=== PATIENT | male | born 1935 | race Caucasian/White ===

== ENCOUNTER 2016-12-09 09:28 | Day surgery (SDC) | payer MEDICARE ==
[2016-12-09] MEDS ORDERED: PROPOFOL 10 MG/ML VIAL IV ONE (14:00)
[2016-12-09] MEDS ORDERED: LIDOCAINE 2% MDV (20MG/ML) 20ML VIAL IV ONE (14:00)
--- NOTE | 2016-12-11 12:00 | Operative Note ---
DATE OF SURGERY: 12/09/2016 OPERATION: ESOPHAGOGASTRODUODENOSCOPY with Savary guidewire dilatation. INDICATION: Recurring dysphagia, history of esophageal stricture, and history of esophageal spasm. The patient also has epiphrenic diverticulum. Dilatation in the past has helped significantly. ANESTHESIA: Intravenous sedation was administered by the department of anesthesiology and included Diprivan titrated to effect. PROCEDURE: Following informed consent from this alert individual, including a discussion of the risks and benefits of the procedure and an opportunity for the patient to ask questions, the patient was in the left lateral decubitus position. The Olympus [id number] video endoscope was inserted into the esophagus without resistance. The proximal esophagus had a normal appearance with normal folds and distensibility. The mid esophagus and distal esophagus had spasm noted without ulcerations or erosions seen. There was an epiphrenic diverticulum noted at the distal esophageal segment. The squamocolumnar junction was otherwise fairly well defined. The stomach was entered and found to be unremarkable except for previous pyloroplasty. The duodenum as visualized was endoscopically unremarkable. Retroflexion within the stomach failed to demonstrate any additional changes. Because of the patient's benefit with dilatation in the past, a decision was made to proceed with Savary dilatation. A guidewire was placed endoscopically into the antrum and serial dilatation then followed utilizing #16 Savary dilator corresponding to a maximum dilatation of 48 Thai. The dilator was passed with relative ease. The dilator and guidewire were then withdrawn simultaneously. The patient tolerated the procedure well and was returned to the recovery area in stable condition. IMPRESSION: 1. Epiphrenic diverticulum. 2. Esophageal spasm. 3. Previous pyloroplasty. 4. Successful dilation with a #16 Savary dilator. RECOMMENDATION: The patient will be following up with Dr. Gianni Ordoñez and call as needed. As always, thank you for allowing me to participate in the care of your patient. Camacho Turk DO CC: MARYLOU Arellano
== END 2016-12-09 11:56 | disposition home or self-care (01) ==
LOC: HOP 09:28
PROVIDERS: ATTEND Internal Medicine Gastroenterology
DX: K22.4 Dyskinesia of esophagus (principal); K22.5 Diverticulum of esophagus, acquired; K44.9 Diaphragmatic hernia without obstruction or gangrene; R13.10 Dysphagia, unspecified; E11.9 Type 2 diabetes mellitus without complications; Z79.4 Long term (current) use of insulin

== ENCOUNTER 2017-02-14 20:07 | Emergency (ER) | payer MEDICARE ==
--- NOTE | 2017-02-14 21:03 | Emergency Department Record ---
History of Present Illness - General Chief complaint: Extremity Problem Stated complaint: PAIN AND BURNING IN FINGER ON LT HAND Time Seen by Provider: 02/14/17 20:55 Source: Patient Mode of Arrival: Ambulatory Limitations: No limitations - History of Present Illness Initial comments: 81 yo male presents with a left middle finger pain, swelling, burning that started tonight. No fever. No streaking up the arm. He has full ROM. He noticed a small bump on the side and wonders if he was stung or bit. He did not see any insects or spiders. MD Complaint: Extremity pain, Joint pain -: Hour(s) Location: Left Radiation: Proximal Quality: Burning Consistency: Intermittent Improves with: Nothing Worsens with: Palpation - Related Data Home Medications Medication Instructions Recorded Confirmed Last Taken Dexlansoprazole [Dexilant] 60 mg PO BIDAC 05/21/14 02/14/17 02/14/17 Griseofulvin, Microsize 500 mg PO DAILY 05/21/14 02/14/17 02/14/17 [Griseofulvin] NPH, Human Insulin Isophane 25 units SQ QHS 05/21/14 02/14/17 02/14/17 [Humulin N] NPH, Human Insulin Isophane 35 units SQ DAILY 05/21/14 02/14/17 02/14/17 [Humulin N] Nitroglycerin [Nitrostat] 0.4 mg SL ASDIR 03/17/16 02/14/17 Unknown Allergies Allergy/AdvReac Type Severity Reaction Status Date / Time levofloxacin [From LEVAQUIN] Allergy Unknown HIVES Verified 02/14/17 20:38 LEVAQUIN Allergy Unknown HIVES Uncoded 05/21/14 18:53 Travel Screening - Travel/Exposure Within Last 30 Days Have you traveled within the last 30 days?: No Review of Systems Constitutional: Denies: Chills, Fever Eyes: Denies: Eye discharge, Eye pain ENT: Denies: Congestion, Throat pain Respiratory: Denies: Cough Cardiovascular: Denies: Chest pain, Syncope Endocrine: Denies: Fatigue Gastrointestinal: Denies: Abdominal pain Genitourinary: Denies: Dysuria, Frequency Musculoskeletal: Reports: As per HPI, Arthralgia Skin: Reports: Change in color, Rash. Denies: Bruising Neurological: Denies: Confusion, Headache Psychiatric: Denies: Anxiety Hematological/Lymphatic: Denies: Easy bleeding, Easy bruising, Swollen glands Past Medical History - SOCIAL HISTORY Smoking Status: Never smoker Alcohol Use: None Drug Use: None - RESPIRATORY Hx Respiratory Disorders: No - CARDIOVASCULAR Hx Cardio Disorders: Yes Hx Cardiac Cath: Yes (8 stents, triple bypass) Hx Heart Attack: Yes - NEURO Hx Neuro Disorders: No - GI Hx GI Disorders: Yes Hx Reflux: Yes Comment:: hx of dysphagia - Hx Genitourinary Disorders: No - ENDOCRINE Hx Endocrine Disorders: Yes - MUSCULOSKELETAL Hx Musculoskeletal Disorders: No Hx Back Injury: Yes - PSYCH Hx Psych Problems: No - HEMATOLOGY/ONCOLOGY Hx Hematology/Oncology Disorders: Yes Hx Cancer: Yes (bladder) Hx Chemotherapy: No Hx Radiation Therapy: No Family Medical History Any Significant Family History?: Yes Hx Cancer: Brother/Sister Hx Dementia: Father, Brother/Sister Hx Heart Disease: Mother, Brother/Sister Physical Exam - General General Appearance: Alert, Oriented x3, Cooperative, No acute distress - Head Head exam: Atraumatic, Normal inspection - Eye Eye exam: Normal appearance - ENT ENT exam: Normal exam Ear exam: Normal external inspection Nasal Exam: Normal inspection Mouth exam: Normal external inspection - Neck Neck exam: Normal inspection - Respiratory Respiratory exam: Normal lung sounds bilaterally - Cardiovascular Cardiovascular Exam: Regular rate, Normal rhythm, Normal heart sounds Peripheral Pulses: 2+: Radial (L) - Rectal Rectal exam: Deferred - exam: Deferred - Extremities Image of Hand: 1 - very mild erythema, full ROM, non tender, 2 - small 5mm nodular area, frim, feels bony, chronic arthritic changes - Neurological Neurological exam: Alert, Normal gait, Oriented X3, Reflexes normal - Psychiatric Psychiatric exam: Normal affect, Normal mood - Skin Skin exam: Erythema Course Vital Signs 02/14/17 20:35 Temperature 98.6 F Pulse Rate [ 87 Pulse Ox Probe] Respiratory 18 Rate Blood Pressure 158/65 [Left Arm] Pulse Ox 97 - Reevaluation(s) Reevaluation #1: The XR was reviewed Mild STS No acute bony changes He was given Keflex in the ED He will be advised to see his PCP first of the week or return if worse over the weekend 02/14/17 21:22 Disposition Disposition: Discharge Clinical Impression: Cellulitis, finger Qualifiers: Laterality: left Qualified Code(s): L03.012 - Cellulitis of left finger Disposition: Home, Self-Care Condition: (1) Good Instructions: Cellulitis (ED) Forms: Patient Portal Access Time of Disposition: 21:14 Quality - Quality Measures Quality Measures: N/A - Blood Pressure Screening Does Patient Have Any of the Following: No Blood Pressure Classification: Hypertensive Reading Systolic Measurement: 148 Diastolic Measurement: 71 Screening for High Blood Pressure: < Pre-Hypertensive BP, F/U Documented > [ G8950] Pre-Hypertensive Follow-up Interventions: Referral to alternative/primary care provider.
[2017-02-14] MEDS ORDERED: CEPHALEXIN 500 MG CAPSULE PO STA (21:12)
--- NOTE | 2017-02-17 15:12 | RADIOLOGY REPORT ---
EXAM: LEFT THIRD DIGIT HISTORY: RADIOPAQUE FOREIGN BODY. TECHNIQUE: Three views of the left third digit were performed. FINDINGS: No evidence of fracture or dislocation. There is a small 2 mm radiopaque foreign body in the ventral soft tissues. IMPRESSION: 1. NO OSSEOUS ABNORMALITY. 2. 2 MM RADIOPAQUE FOREIGN BODY IN THE VENTRAL SOFT TISSUES. JOB NUMBER: [id number] MTDD
== END 2017-02-14 22:04 | disposition home or self-care (01) ==
LOC: ER 20:07
DX: L03.012 Cellulitis of left finger (principal)
CPT/HCPCS: 73140; 99283

== ENCOUNTER 2017-06-19 12:12 | Observation (INO) | payer MEDICARE ==
--- NOTE | 2017-06-19 12:41 | Emergency Department Record ---
History of Present Illness - General Stated Complaint: DIZZY Time Seen by Provider: 06/19/17 12:36 Source: Patient Mode of Arrival: Ambulatory Limitations: No limitations - History of Present Illness Initial Comments: 81 yo male presents with recurrent episodes of dizziness and feeling like he is gong to pass out. He states these episodes have been ongoing many years but have become worse the last week. He states when he stands up he gets dizzy and the room goes black. No chest pain. He states he does not think he completely passed out. No weakness to one side or the other. No nausea, vomiting or diarrhea. His new PCP is Leigh Martinez. He was directed to come to the ED to day because of his symptoms. He was seen in the [facility] yesterday. MD Complaint: Dizziness, Lightheadedness, Near syncope -: Week(s) Timing: Sudden onset, Intermittent Description: Lightheadedness History of Same: Yes History of Trauma: Yes (mild injuries to the arms) Improves With: Rest Worsens With: Position Associated Symptoms: Denies other symptoms - Gregorio Coma Scale Eye Response: (4) Open spontaneously Motor Response: (6) Obeys commands Verbal Response: (5) Oriented [place] Total: 15 - Related Data Allergies Allergy/AdvReac Type Severity Reaction Status Date / Time levofloxacin [From LEVAQUIN] Allergy Unknown HIVES Unverified 06/18/17 12:38 LEVAQUIN Allergy Unknown HIVES Uncoded 05/21/14 18:53 Review of Systems Constitutional: Denies: Chills, Fever, Malaise, Weakness Eyes: Denies: Eye discharge ENT: Denies: Congestion, Throat pain Respiratory: Denies: Cough, Dyspnea, Hemoptysis, Wheezes Cardiovascular: Reports: Syncope. Denies: Chest pain, Palpitations Endocrine: Denies: Fatigue Gastrointestinal: Denies: Abdominal pain, Diarrhea, Nausea, Vomiting Genitourinary: Denies: Dysuria, Frequency, Hematuria, Urgency Musculoskeletal: Denies: Arthralgia, Back pain, Myalgia Skin: Denies: Bruising, Change in color, Rash Neurological: Denies: Confusion, Headache, Numbness, Tingling, Tremors, Vertigo , Weakness Psychiatric: Denies: Anxiety Hematological/Lymphatic: Denies: Blood Clots, Easy bleeding, Easy bruising, Swollen glands Past Medical History - SOCIAL HISTORY Smoking Status: Never smoker Drug Use: None - RESPIRATORY Hx Respiratory Disorders: No - CARDIOVASCULAR Hx Cardio Disorders: Yes Hx Cardiac Cath: Yes (8 stents, triple bypass) Hx Heart Attack: Yes - NEURO Hx Neuro Disorders: No - GI Hx GI Disorders: Yes Hx Reflux: Yes Comment:: hx of dysphagia - Hx Genitourinary Disorders: No - ENDOCRINE Hx Endocrine Disorders: Yes - MUSCULOSKELETAL Hx Musculoskeletal Disorders: No Hx Back Injury: Yes - PSYCH Hx Psych Problems: No - HEMATOLOGY/ONCOLOGY Hx Hematology/Oncology Disorders: Yes Hx Cancer: Yes (bladder) Hx Chemotherapy: No Hx Radiation Therapy: No Family Medical History Hx Cancer: Brother/Sister Hx Dementia: Father, Brother/Sister Hx Heart Disease: Mother, Brother/Sister Physical Exam - General General Appearance: Alert, Oriented x3, Cooperative, No acute distress Limitations: No limitations - Head Head exam: Atraumatic, Normocephalic, Normal inspection - Eye Eye exam: Normal appearance. negative: Conjunctival injection, Periorbital swelling, Scleral icterus - ENT ENT exam: Normal exam, Mucous membranes moist Ear exam: Normal external inspection Nasal Exam: Normal inspection Mouth exam: Normal external inspection Teeth exam: Normal inspection Throat exam: Normal inspection - Neck Neck exam: Normal inspection, Full ROM. negative: Tenderness - Respiratory Respiratory exam: Normal lung sounds bilaterally. negative: Respiratory distress - Cardiovascular Cardiovascular Exam: Regular rate, Normal rhythm, Normal heart sounds Peripheral Pulses: 2+: Radial (R), Radial (L) - GI/Abdominal GI/Abdominal exam: Soft. negative: Tenderness - Rectal Rectal exam: Deferred - exam: Deferred - Extremities Extremities exam: Normal inspection, Full ROM, Normal capillary refill. negative: Tenderness - Back Back exam: Reports: Normal inspection, Full ROM. Denies: Muscle spasm, Rash noted, Tenderness - Neurological Neurological exam: Alert, CN II-XII intact, Normal gait, Oriented X3. negative : Motor sensory deficit - Psychiatric Psychiatric exam: Normal affect, Normal mood - Skin Skin exam: Dry, Intact, Normal color, Warm Course - Reevaluation(s) Reevaluation #1: 06/19/17 13:59 The labs were reviewed TheHgb is 9.7 The Glucose is 248 The Troponin is normal The HCT is negative for change from yesterday. Meningioma noted 06/19/17 14:06 EKG 13:05 NSR rate 88, intervals normal, axis normal, ST no acute change I TAWNYA Newman for admission for syncope Carotids and Echo will be ordered 06/19/17 15:23 Medical Decision Making - Lab Data Result diagrams: 06/19/17 12:56 06/19/17 12:56 Disposition Disposition: Admit Clinical Impression: Near syncope, Dizziness Syncope Qualifiers: Syncope type: unspecified Qualified Code(s): R55 - Syncope and collapse Disposition: Still a Patient at [facility] Decision to Admit: Admit from ER Decision to Admit Date: 06/19/17 Decision to Admit Time: 14:08 Time Discussed w/Accepting Physician: 14:08 Condition: (2) Stable Time of Disposition: 14:08 Quality - Quality Measures Quality Measures: N/A - Blood Pressure Screening Does Patient Have Any of the Following: No Blood Pressure Classification: Hypertensive Reading Systolic Measurement: 157 Diastolic Measurement: 63 Screening for High Blood Pressure: < Pre-Hypertensive BP, F/U Documented > [ G8950] Pre-Hypertensive Follow-up Interventions: Referral to alternative/primary care provider.
[2017-06-19 13:07] LABS: HEMATOCRIT 32.7 % (42.0-52.0); HEMOGLOBIN 9.7 gm/dl (14.0-18.0); MEAN CELL VOLUME 65.3 fl (81-97); MEAN CORPUSCULAR HGB CONC 29.7 g/dl (32-36); MEAN PLATELET VOLUME 9.7 fl (7.4-10.4); PLATELET COUNT 290 K/uL (130-400); RED BLOOD COUNT 5.01 M/uL (4.40-5.70); RED CELL DISTRIBUTION WIDTH 19.6 % (11.5-14.5); WHITE BLOOD COUNT W/O DIFF 8.5 K/uL (4.2-12.2)
[2017-06-19 13:09] LABS: MEAN CORPUSCULAR HEMOGLOBIN 19.3 pg (27-33)
[2017-06-19 13:18] LABS: BILIRUBIN,TOTAL < 0.20 mg/dL (0.2-1.0); BLOOD UREA NITROGEN 19 mg/dL (8-23); CREATININE 0.9 mg/dL (0.7-1.2); EST GLOMERULAR FILTRATION RATE > 60 mL/min; TOTAL PROTEIN 7.5 g/dL (6.6-8.7)
[2017-06-19 13:19] LABS: HYPOCHROMIA 1+; PLATELET ESTIMATE NORMAL (NORMAL)
[2017-06-19 13:20] LABS: GLUCOSE,RANDOM 248 mg/dL (74-109); INR 0.93; PARTIAL THROMBOPLASTIN TIME 24.7 SECONDS (24.5-39.1)
[2017-06-19 13:23] LABS: ALB/GLOB RATIO 1.6 (1.1-1.8); ALBUMIN 4.6 g/dL (4.0-5.0); ALKALINE PHOSPHATASE 81 U/L (40-129); ALT/SGPT 19 U/L (<41); AST/SGOT 23 U/L (10.0-50.0)
[2017-06-19] MEDS: PANTOPRAZOLE SODIUM 40 MG TABLET PO SCH (18:15)
[2017-06-19] MEDS: HUMULIN N KWIKPEN 100 UNIT/ML SQ SCH (18:18)
[2017-06-20] MEDS: PANTOPRAZOLE SODIUM 40 MG TABLET PO SCH ×2 (06:26→15:48)
[2017-06-20 07:12] LABS: HEMATOCRIT 31.9 % (42.0-52.0); HEMOGLOBIN 9.2 gm/dl (14.0-18.0); MEAN CELL VOLUME 65.5 fl (81-97); MEAN CORPUSCULAR HGB CONC 28.8 g/dl (32-36); MEAN PLATELET VOLUME 10.3 fl (7.4-10.4); PLATELET COUNT 289 K/uL (130-400); RED BLOOD COUNT 4.87 M/uL (4.40-5.70); RED CELL DISTRIBUTION WIDTH 19.7 % (11.5-14.5)
--- NOTE | 2017-06-20 07:19 | CT SCAN REPORT ---
EXAM: CT OF THE BRAIN HISTORY: DIZZINESS. TECHNIQUE: CT of the brain without contrast was obtained. Comparison: Prior CT of the brain dated 06/18/17. FINDINGS: The globes are intact. The paranasal sinuses and mastoid air cells are unremarkable. No displaced or depressed skull fracture. There is no intra or extraaxial hemorrhage. Stable calcified dural based mass in the left frontal lobe consistent with meningioma. Negative for intraaxial mass or midline shift. Diffuse atrophy. Small vessel ischemic change. CT is limited for the evaluation of acute infarct. No CT evidence for large or territorial acute infarct. 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 ATROPHY. SMALL VESSEL ISCHEMIC CHANGE. [facility]BER: [id number] [facility]
[2017-06-20 07:25] LABS: ALB/GLOB RATIO 1.4 (1.1-1.8); ALKALINE PHOSPHATASE 61 U/L (40-129); ALT/SGPT 17 U/L (<41); AST/SGOT 18 U/L (10.0-50.0); BLOOD UREA NITROGEN 20 mg/dL (8-23); CREATININE 0.8 mg/dL (0.7-1.2); EST GLOMERULAR FILTRATION RATE > 60 mL/min; GLUCOSE,RANDOM 127 mg/dL (74-109); TOTAL PROTEIN 6.8 g/dL (6.6-8.7)
--- NOTE | 2017-06-20 07:26 | US CAROTID DOPPLER REPORT ---
EXAM: BILATERAL CAROTID DOPPLER ULTRASOUND HISTORY: SYNCOPE. TECHNIQUE: Real-time mari scale sonographic imaging of the neck was performed with Duplex Doppler and spectral analysis. Comparison: None. FINDINGS: Mari scale images reveal no significant plaque in the visualized carotid arteries. Spectral analysis demonstrates brisk carotid upstroke with no parvus tardus morphology. Velocities are as follows: Right CCA PSV: 79.3 cm/s Right ICA PSV: 86.0 cm/s Right ICA EDV: 23.5 cm/s Right ECA PSV: 157.2 cm/s Right ICA/CCA ratio: 1.1 Left CCA PSV: 62.9 cm/s Left ICA PSV: 108.7 cm/s Left ICA EDV: 18.8 cm/s Left ECA PSV: 127.7 cm/s Left ICA/CCA ratio: 1.7 There is antegrade flow in the vertebral arteries. IMPRESSION: UNREMARKABLE CAROTID DOPPLER ULTRASOUND WITH NO HEMODYNAMICALLY SIGNIFICANT STENOSIS IDENTIFIED. JOB NUMBER: [id number] MTDD
[2017-06-20 07:28] LABS: MEAN CORPUSCULAR HEMOGLOBIN 18.8 pg (27-33)
--- NOTE | 2017-06-20 08:01 | History & Physical ---
History of Present Illness - Date of Service Date of Service for History & Physical: 06/20/17 - History of Present Illness Admitting Diagnosis: syncope History of Present Illness: 81yo male with CC of recurrent episodes of dizziness and feeling like he is gong to pass out. He has history of diabetes and meningioma. Patient was seen in the [facility] about a week ago for these symptoms and then again on . He had an MRA scheduled as an outpatient but the dizziness got worse and so he was told to come to the ED. When he got to the ED, he reported standing up made him dizzy and the room goes black. No chest pain. He states he does not think he completely passed out. No weakness to one side or the other. No nausea, vomiting or diarrhea. While in the ED, Patient had EKG that showed NSR rate [address] changes. 1st set of CE returned wnl. CT head showed stable, calcified meningioma in the left frontal lobe. CBC showed hgb of 9.7. CMP showed slight increase in potassium at 4.6 but was otherwise unremarkable. Orthostatic vital signs did not show signs of orthostasis with position changes. Patient was admitted for presyncope. 06/20/17- Patient says he is feeling better today. He has continued to have dizziness with abrupt head movements or changes in position. He has not had any further episodes of the room going black or feeling like he is going to pass out. He worked with PT today and says that was helpful. He continues to deny any chest pain, vision change, confusion. He has a slight headache, but thinks it is because he didn't sleep well last night. He manages his diabetes with NPH insulin and refuses to let anyone adjust this medication. He admits that yesterday morning his glucose was pretty low, somewhere in the 30's but then it improved after eating. pcp: Shirley-[facility] Travel Screening - Travel/Exposure Within Last 30 Days Have you traveled within the last 30 days?: No - Travel/Exposure Within Last Year Have you traveled outside the [place] in the last year?: No - Additonal Travel Details Have you been exposed to anyone with a communicable illness?: No - Travel Symptoms Symptom Screening: None Review of Systems Constitutional: Denies: Chills, Fever, Malaise, Weakness Eyes: Denies: Eye discharge ENT: Denies: Congestion, Throat pain Respiratory: Denies: Cough, Dyspnea, Hemoptysis, Wheezes Cardiovascular: Reports: Syncope. Denies: Chest pain, Palpitations Endocrine: Denies: Fatigue Gastrointestinal: Denies: Abdominal pain, Diarrhea, Nausea, Vomiting Genitourinary: Denies: Dysuria, Frequency, Hematuria, Urgency Musculoskeletal: Denies: Arthralgia, Back pain, Myalgia Skin: Denies: Bruising, Change in color, Rash Neurological: Reports: Vertigo. Denies: Confusion, Headache, Numbness, Tingling , Tremors, Weakness Psychiatric: Denies: Anxiety Hematological/Lymphatic: Denies: Blood Clots, Easy bleeding, Easy bruising, Swollen glands Past Medical History - SOCIAL HISTORY Smoking Status: Never smoker Drug Use: None - RESPIRATORY Hx Respiratory Disorders: No - CARDIOVASCULAR Hx Cardio Disorders: Yes Hx Cardiac Cath: Yes (8 stents, triple bypass) Hx Heart Attack: Yes - NEURO Hx Neuro Disorders: No - GI Hx GI Disorders: Yes Hx Reflux: Yes Comment:: hx of dysphagia - Hx Genitourinary Disorders: No - ENDOCRINE Hx Endocrine Disorders: Yes - MUSCULOSKELETAL Hx Musculoskeletal Disorders: No Hx Back Injury: Yes - PSYCH Hx Psych Problems: No - HEMATOLOGY/ONCOLOGY Hx Hematology/Oncology Disorders: Yes Hx Cancer: Yes (bladder) Hx Chemotherapy: No Hx Radiation Therapy: No Family Medical History Hx Cancer: Brother/Sister Hx Dementia: Father, Brother/Sister Hx Heart Disease: Mother, Brother/Sister H&P Meds/Allergies - Allergies Allergies: Allergies Allergy/AdvReac Type Severity Reaction Status Date / Time levofloxacin [From LEVAQUIN] Allergy Unknown HIVES Unverified 06/18/17 12:38 LEVAQUIN Allergy Unknown HIVES Uncoded 05/21/14 18:53 - Active Medications Active Medications: Current Medications Insulin Human NPH (Humulin N Kwikpen) 18 unit SQ 1645 SANTIAGO Last Admin: 06/19/17 18:18 Dose: 18 unit Insulin Human NPH (Humulin N Kwikpen) 35 unit SQ 0745 SANTIAGO Pantoprazole Sodium (Protonix) 40 mg PO BIDAC [facility] Last Admin: 06/20/17 06:26 Dose: 40 mg Physical Exam - Vital Signs Vital Signs: Vital Signs - Last 24 Hrs Temp Pulse Pulse Resp BP BP Pulse Ox 06/19/17 20:00 98.7 F 78 18 151/68 97 12/21/17 15:22 97.9 F 89 14 157/63 98 06/19/17 15:15 98.1 F 87 18 174/67 93 L - General General Appearance: Alert, Oriented x3, Cooperative, No acute distress Limitations: No limitations - Head Head exam: Atraumatic, Normocephalic, Normal inspection - Eye Eye exam: Normal appearance. negative: Conjunctival injection, Periorbital swelling, Scleral icterus - ENT ENT exam: Normal exam, Mucous membranes moist Ear exam: Normal external inspection Nasal Exam: Normal inspection Mouth exam: Normal external inspection Teeth exam: Normal inspection Throat exam: Normal inspection - Neck Neck exam: Normal inspection, Full ROM. negative: Tenderness - Respiratory Respiratory exam: Normal lung sounds bilaterally. negative: Respiratory distress - Cardiovascular Cardiovascular Exam: Regular rate, Normal rhythm, Normal heart sounds Peripheral Pulses: 2+: Radial (R), Radial (L) - GI/Abdominal GI/Abdominal exam: Soft. negative: Tenderness - Rectal Rectal exam: Deferred - exam: Deferred - Extremities Extremities exam: Normal inspection, Full ROM, Normal capillary refill. negative: Tenderness - Back Back exam: Reports: Normal inspection, Full ROM. Denies: Muscle spasm, Rash noted, Tenderness - Neurological Neurological exam: Alert, CN II-XII intact, Normal gait, Oriented X3. negative : Motor sensory deficit - Psychiatric Psychiatric exam: Normal affect, Normal mood - Skin Skin exam: Dry, Intact, Normal color, Warm Results - Labs Result Diagrams: 06/21/17 06:05 06/21/17 06:05 Labs Last 24 Hours: Laboratory Results - last 24 hr 06/19/17 06/19/17 06/19/17 18:25 23:15 23:26 WBC RBC Hgb Hct MCV MCH MCHC RDW Plt Count MPV Gran % Lymphocytes % Monocytes % Eosinophils % Basophils % Sodium Potassium Chloride Carbon Dioxide Anion Gap BUN Creatinine Estimated GFR POC Glucose 312 H 254 H Random Glucose Calcium Total Bilirubin AST ALT Alkaline Phosphatase Troponin T < 0.010 Total Protein Albumin Globulin Albumin/Globulin Ratio 06/20/17 06/20/17 06/20/17 06:20 06:20 06:20 WBC 5.0 RBC 4.87 Hgb 9.2 L Hct 31.9 L MCV 65.5 L MCH 18.8 L MCHC 28.8 L RDW 19.7 H Plt Count 289 MPV 10.3 Gran % Lead Presser Lymphocytes % Lead Presser Monocytes % Lead Presser Eosinophils % Lead Presser Basophils % Lead Presser Sodium 146 H Potassium 4.5 Chloride 106 Carbon Dioxide 30.0 H Anion Gap 10.0 BUN 20 Creatinine 0.8 Estimated GFR > 60 POC Glucose Random Glucose 127 H Calcium 9.2 Total Bilirubin 0.20 AST 18 ALT 17 Alkaline Phosphatase 61 Troponin T < 0.010 Total Protein 6.8 Albumin 4.0 Globulin 2.8 Albumin/Globulin Ratio 1.4 06/20/17 07:31 WBC RBC Hgb Hct MCV MCH MCHC RDW Plt Count MPV Gran % Lymphocytes % Monocytes % Eosinophils % Basophils % Sodium Potassium Chloride Carbon Dioxide Anion Gap BUN Creatinine Estimated GFR POC Glucose 157 H Random Glucose Calcium Total Bilirubin AST ALT Alkaline Phosphatase Troponin T Total Protein Albumin Globulin Albumin/Globulin Ratio - Imaging and Cardiology CT scan - head Status: Report reviewed (stable, calcified meningioma left frontal region) VTE H&P Assessment - Risk for VTE Risk for VTE: Yes Risk Level: High Risk Assessment Date: 06/20/17 Risk Assessment Time: 17:00 VTE Orders Placed or Will Be Placed: Yes Plan - Detailed Diagnosis and Plan (1) Near syncope Current Visit: Yes Status: Acute Base Code: R55 - SYNCOPE AND COLLAPSE Comment: 06/20/17- CT head x2 showed no acute changes. there is a stable, calcified meningioma in the left frontal region. CE were negative x3 and EKG remains unchanged. hgb of 9.2 this morning and cmp was unremarkable. Blood pressure was 151/68 and no signs of orthostasis with position change. -carotid dopplers ordered -echo ordered -MRA of the head and neck with and without contrast ordered. earliest this can be completed is 06/21 at 10:30am. -continue vitals q8H -repeat labs qam -PT/OT consult for vestibular therapy (2) Insulin dependent diabetes mellitus Current Visit: Yes Status: Acute Base Code: E11.9 - TYPE 2 DIABETES MELLITUS WITHOUT COMPLICATIONS; Z79.4 - ALF (CURRENT) USE OF INSULIN Comment: 06/20/17- Patient reports a low in the 30's yesterday morning that did improve with food. He is very insistent that no one adjust his insulin amount or timing. Hypoglycemia will certainly contribute to his dizziness, light- headedness. -continue to monitor. (3) DVT prophylaxis Current Visit: No Status: Acute Base Code: [id number] - Priority: High Comment: 06/20/17: pt started on Lovenox 40mg SQ QD for DVT prophylaxis (4) Full code status Current Visit: No Status: Acute Base Code: Z78.9 - OTHER SPECIFIED HEALTH STATUS Comment: 06/20/17- patient will remain full code status during this hospitalization
[2017-06-20 08:22] LABS: HYPOCHROMIA 2+; MICROCYTOSIS 1+
[2017-06-20] MEDS: HUMULIN N KWIKPEN 100 UNIT/ML SQ SCH ×2 (08:50→17:45)
--- NOTE | 2017-06-20 12:40 | Rehab Evaluation ---
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 cervical neck surgery 2010 gallbladder PMH - Respiratory Hx Respiratory Disorders No PMH - Cardiovascular Hx Cardiovascular Disorders Yes Hx Cardiac Catheterization Yes: 8 stents, triple bypass Hx Heart Attack Yes PMH - Neuro Hx Neurological Disorders No Hx Dizziness Yes PMH - GI Hx Gastrointestinal Disorders Yes Hx Gastroesophageal Reflux Yes Comment: hx of dysphagia PMH - Hx Genitourinary Disorders No PMH - Endocrine Hx Endocrine Disorders Yes Hx of IDDM Yes: Humulin N 35units am, pm variable PMH - Musculoskeletal Hx Musculoskeletal Disorders No Hx Back Injury Yes PMH - Psych Hx Psychiatric Problems No PMH - Hematology/Oncology Hx Hematology/Oncology Yes Disorders Hx Cancer Yes: bladder Hx Chemotherapy No Hx Radiation Therapy No Premorbid Status: Detail (The patient was independent with all mobility.) Social History: Detail (The patient lives alone in a one story home with one step and one railing. The patient's bathroom is equipped with tub/shower combination and standard toilet and no grab bars. The patient drives and completes all his housework and cleaning.) Precautions: Fall - Time With Patient Total Time Spent With Patient (Min): 30 Treatment Procedures: Detail (Initial Evaluation.) Subjective Information - Subjective Information Per Patient (The patient complains of vertigo "room spinning " with looking down, supine to and from sit and sit to stand transfer. The patient also has complaints of lightheadness at times.) Objective Data - Mental Status Patient Orientation: Oriented x3 - Visual Perception Appears within normal limits for therapeutic activities (Visual Testing: VOR and smooth pursuit,sacadic movement were intact.) - ROM Within normal limits - Strength/Tone Within normal limits - Coordination Appears within normal limits for therapeutic activities - Bed Mobility Independent (Supine to sit was independent) - Transfers Independent - Balance Balance Sitting: Good Balance Standing: Good (Patient stands with wider base of support. Objective balance testing was not completed. The patient's balance when ambulated was decreased.), Fair (when ambulating and turning head LOB was noted.) - Gait Detail (The patient ambulated without device a distance of 70 feet x 1 independently. The patient had episode of LOB and lightheadness when turning head to the L.) - Special Tests Yes (Modified Hallpike manuever- symptoms of lightheadness was noted with right and left head rotation when returned to sitting position. No nystagmus was not noted. Positional testing: lightheadness was noted with quick vertical head movements.) Therapy Assessment - Therapy Assessment Detail (Due to positive tests of symptoms of lightheadness with quick head and positional transitional movements vestibular invovlement is probable. Recommend either Home PT or Outpatient Pt for Vestibular Rehab. Will instruct patient in Habituation exercises.) Problem List - Problem List Physical Therapy Problem List: Detail (1) Lightheadness, Vertigo with quick head movement and transitional head movements 2) Unsteadiness with gait with head movement) Goals - Goals Physical Therapy Goals: 1) Evaluate patient for balance deficits using DGI. 2) Decrease frequency and intensity of symptoms of lightheadness with transitional and quick head movements. Prognosis - Prognosis Moderate Plan - Plan Physical Therapy Plan: Patient to discharge from [facility] tomorrow. The patient was given a HEP of habituation exercises. Recommend ongoing outpatient or Home PT for vestibular rehabilitation.
[2017-06-20] MEDS ORDERED: ACETAMINOPHEN 325 MG TAB PO ONE (15:13)
[2017-06-20] MEDS ORDERED: MECLIZINE 25 MG TABLET PO PRN (16:56)
[2017-06-21 06:37] LABS: BASO % 0.4 % (0-6); EOS % 2.5 % (0-6); HEMATOCRIT 31.3 % (42.0-52.0); HEMOGLOBIN 9.1 gm/dl (14.0-18.0); LYMPH % 27.9 % (16-45); MEAN CELL VOLUME 65.1 fl (81-97); MEAN CORPUSCULAR HEMOGLOBIN 18.9 pg (27-33); MEAN CORPUSCULAR HGB CONC 29.1 g/dl (32-36); MEAN PLATELET VOLUME 10.3 fl (7.4-10.4); MONO % 9.2 % (0-9); PLATELET COUNT 272 K/uL (130-400); RED CELL DISTRIBUTION WIDTH 19.6 % (11.5-14.5); WHITE BLOOD COUNT W/O DIFF 5.1 K/uL (4.2-12.2)
[2017-06-21 06:51] LABS: RED BLOOD COUNT 4.81 M/uL (4.40-5.70)
[2017-06-21 06:53] LABS: ALB/GLOB RATIO 1.3 (1.1-1.8); ALBUMIN 3.8 g/dL (4.0-5.0); ALKALINE PHOSPHATASE 58 U/L (40-129); ALT/SGPT 16 U/L (<41); AST/SGOT 19 U/L (10.0-50.0); BILIRUBIN,TOTAL < 0.20 mg/dL (0.2-1.0); BLOOD UREA NITROGEN 32 mg/dL (8-23); CREATININE 0.8 mg/dL (0.7-1.2); EST GLOMERULAR FILTRATION RATE > 60 mL/min; GLUCOSE,RANDOM 148 mg/dL (74-109); TOTAL PROTEIN 6.7 g/dL (6.6-8.7)
[2017-06-21] MEDS: PANTOPRAZOLE SODIUM 40 MG TABLET PO SCH (07:10)
[2017-06-21] MEDS: HUMULIN N KWIKPEN 100 UNIT/ML SQ SCH (08:45)
--- NOTE | 2017-06-21 09:06 | Discharge Summary ---
Providers Discharge Summary Date: 06/21/17 Date of admission: 06/19/17 14:43 Attending physician: Dewayne Dent Primary care physician: Queenie Watson N.P. Physical Exam - Vital Signs Vital Signs: Vital Signs - Last 24 Hrs Temp Pulse Pulse Resp BP Pulse Ox 06/21/17 08:00 98.6 F 81 18 150/73 96 06/21/17 05:50 97 06/20/17 20:15 96 06/20/17 20:00 98.9 F 79 20 106/57 96 06/20/17 09:30 80 15 98 - General General Appearance: Alert, Oriented x3, Cooperative, No acute distress Limitations: No limitations - Head Head exam: Atraumatic, Normocephalic, Normal inspection - Eye Eye exam: Normal appearance. negative: Conjunctival injection, Periorbital swelling, Scleral icterus - ENT ENT exam: Normal exam, Mucous membranes moist Ear exam: Normal external inspection Nasal Exam: Normal inspection Mouth exam: Normal external inspection Teeth exam: Normal inspection Throat exam: Normal inspection - Neck Neck exam: Normal inspection, Full ROM. negative: Tenderness - Respiratory Respiratory exam: Normal lung sounds bilaterally. negative: Respiratory distress - Cardiovascular Cardiovascular Exam: Regular rate, Normal rhythm, Normal heart sounds Peripheral Pulses: 2+: Radial (R), Radial (L) - GI/Abdominal GI/Abdominal exam: Soft. negative: Tenderness - Rectal Rectal exam: Deferred - exam: Deferred - Extremities Extremities exam: Normal inspection, Full ROM, Normal capillary refill. negative: Tenderness - Back Back exam: Reports: Normal inspection, Full ROM. Denies: Muscle spasm, Rash noted, Tenderness - Neurological Neurological exam: Alert, CN II-XII intact, Normal gait, Oriented X3. negative : Motor sensory deficit - Psychiatric Psychiatric exam: Normal affect, Normal mood - Skin Skin exam: Dry, Intact, Normal color, Warm Hospitalization - Hospitalization Admission Diagnosis: syncope - Problem List/Discharge Diagnosis (1) Near syncope Current Visit: Yes Status: Acute Base Code: R55 - SYNCOPE AND COLLAPSE Comment: 06/21/17- CT head x2 showed no acute changes. there is a stable, calcified meningioma in the left frontal region. CE were negative x3 and EKG remains unchanged. -carotid dopplers showed no hemodynamically significant stenosis -echo showed mild that was not hemodynamically significant. EF was 65-70% -MRA of the head and neck with showed less than 50% luminal narrowing of the ICA with mild calcifications present. no hemodynamically significant stenosis -He will continue PT for vestibular therapy as outpatient. Order has been faxed -meclizine 25mg po up to three times daily as needed. script sent to pharmacy. 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 He says he usually eats a snickers bar and it brings his sugar right up. he does not eat after about 4:30pm until 7am the next day. -continue to monitor. -encouraged him to start having a bedtime snack with a mix of carbohydrates and protein. we talked about crackers and cheese or a single piece of bread with peanut butter -follow up with Queenie in [facility] (3) DVT prophylaxis Current Visit: No Status: Acute Base Code: [id number] - Comment: 06/21/17: pt started on Lovenox 40mg SQ QD for DVT prophylaxis (4) Full code status Current Visit: No Status: Acute Base Code: Z78.9 - OTHER SPECIFIED HEALTH STATUS Comment: 06/21/17- patient will remain full code status during this hospitalization - Hospitalization Course Disposition: Home Health Service Hospital Course: 81yo male with CC of recurrent episodes of dizziness and feeling like he is gong to pass out. He has history of diabetes and meningioma. Patient was seen in the [facility] about a week ago for these symptoms and then again on . He had an MRA scheduled as an outpatient but the dizziness got worse and so he was told to come to the ED. When he got to the ED, he reported standing up made him dizzy and the room goes black. No chest pain. He states he does not think he completely passed out. No weakness to one side or the other. No nausea, vomiting or diarrhea. While in the ED, Patient had EKG that showed NSR rate [address] changes. 1st set of CE returned wnl. CT head showed stable, calcified meningioma in the left frontal lobe. CBC showed hgb of 9.7. CMP showed slight increase in potassium at 4.6 but was otherwise unremarkable. Orthostatic vital signs did not show signs of orthostasis with position changes. Patient was admitted for presyncope. 06/20/17- Patient says he is feeling better today. He has continued to have dizziness with abrupt head movements or changes in position. He has not had any further episodes of the room going black or feeling like he is going to pass out. He worked with PT today and says that was helpful. He continues to deny any chest pain, vision change, confusion. He has a slight headache, but thinks it is because he didn't sleep well last night. He manages his diabetes with NPH insulin and refuses to let anyone adjust this medication. He admits that yesterday morning his glucose was pretty low, somewhere in the 30's but then it improved after eating. 06/21/17- Patient states he is doing well today. He says he still gets some dizziness with fast head movements or standing up quickly. He denies any further episodes of light-headedness or the room going black. He denies headache , vision change, chest pain, lower extremity swelling. [facility]: Imaging and X-Rays 06/21/17 10:30 HEAD MRA W/WO CONTRAST [MRA] Stat NECK MRA W/WO CONTRAST [MRA] Stat Abnormal Labs: Abnormal Lab Results 06/19/17 06/19/17 06/20/17 Range/Units 18:25 23:26 06:20 Hgb 9.2 L (14.0-18.0) gm/dl Hct 31.9 L (42.0-52.0) % MCV 65.5 L (81-97) fl MCH 18.8 L (27-33) pg MCHC 28.8 L (32-36) g/dl RDW 19.7 H (11.5-14.5) % Monocytes % (0-9) % Sodium (136-145) mmol/L Carbon Dioxide (22-29) mmol/L BUN (8-23) mg/dL POC Glucose 312 H 254 H (70-110) mg/dL Random Glucose (74-109) mg/dL Total Bilirubin (0.2-1.0) mg/dL Albumin (4.0-5.0) g/dL 06/20/17 06/20/17 06/20/17 Range/Units 06:20 07:31 11:45 Hgb (14.0-18.0) gm/dl Hct (42.0-52.0) % MCV (81-97) fl MCH (27-33) pg MCHC (32-36) g/dl RDW (11.5-14.5) % Monocytes % (0-9) % Sodium 146 H (136-145) mmol/L Carbon Dioxide 30.0 H (22-29) mmol/L BUN (8-23) mg/dL POC Glucose 157 H 248 H (70-110) mg/dL Random Glucose 127 H (74-109) mg/dL Total Bilirubin (0.2-1.0) mg/dL Albumin (4.0-5.0) g/dL 06/20/17 06/20/17 06/20/17 Range/Units 18:38 21:05 23:50 Hgb (14.0-18.0) gm/dl Hct (42.0-52.0) % MCV (81-97) fl MCH (27-33) pg MCHC (32-36) g/dl RDW (11.5-14.5) % Monocytes % (0-9) % Sodium (136-145) mmol/L Carbon Dioxide (22-29) mmol/L BUN (8-23) mg/dL POC Glucose 123 H 33 L* 122 H (70-110) mg/dL Random Glucose (74-109) mg/dL Total Bilirubin (0.2-1.0) mg/dL Albumin (4.0-5.0) g/dL 06/21/17 06/21/17 06/21/17 Range/Units 06:05 06:05 08:10 Hgb 9.1 L (14.0-18.0) gm/dl Hct 31.3 L (42.0-52.0) % MCV 65.1 L (81-97) fl MCH 18.9 L (27-33) pg MCHC 29.1 L (32-36) g/dl RDW 19.6 H (11.5-14.5) % Monocytes % 9.2 H (0-9) % Sodium (136-145) mmol/L Carbon Dioxide (22-29) mmol/L BUN 32 H (8-23) mg/dL POC Glucose 182 H (70-110) mg/dL Random Glucose 148 H (74-109) mg/dL Total Bilirubin < 0.20 L (0.2-1.0) mg/dL Albumin 3.8 L (4.0-5.0) g/dL Condition at Discharge: (2) Stable Discharge Medications - Discharge Medications Prescriptions: Meclizine HCl [Antivert] 25 mg PO Q8H PRN #30 tablet PRN Reason: Dizziness Home Medications: Ambulatory Orders Dexlansoprazole [Dexilant] 60 mg PO BIDAC 05/21/14 [Last Taken 06/19/17] Griseofulvin, Microsize [Griseofulvin] 500 mg PO DAILY 05/21/14 [Last Taken ] NPH, Human Insulin Isophane [Humulin N] 25 units SQ QHS 05/21/14 [Last Taken ] NPH, Human Insulin Isophane [Humulin N] 35 units SQ DAILY 05/21/14 [Last Taken 06/19/17] Nitroglycerin [Nitrostat] 0.4 mg SL ASDIR 03/17/16 [Last Taken Unknown] Meclizine HCl [Antivert] 25 mg PO Q8H PRN #30 tablet 06/21/17 [Last Taken Unknown] Discharge Plan - Discharge Instructions Activity at Discharge: As Per Physical Therapy Diet at Discharge: Diabetic Diet Additional Instructions: Follow up with Queenie in 7-10 days. [facility] will be calling you to set that appointment up. We will also be calling you to set up physical therapy for dizziness Continue your home medications You may take the meclizine 25mg by mouth every 8 hours NEEDED for dizziness Try having a bedtime snack and keeping a log of your blood sugar until you follow up with Queenie Please call with any questions or concerns Return to ED for any new or worsening symptoms Quality Measures - Quality Measures Quality Measures: Advance Directives, Documentation of Current Medications in Medical Record, Elder Maltreatment Screen and Follow-Up Plan, Screening for High Blood Pressure and F/U Documented - Current Medications Quality Measure: Measure #130: Documentation of Current Medications Documentation of Current Medications: <Current Medications Documented/Reviewed> [G8427] - Blood Pressure Screening Quality Measure: Screening for High Blood Pressure and Follow-Up Documented Does Patient Have Any of the Following: No Blood Pressure Classification: Hypertensive Reading Systolic Measurement: 157 Diastolic Measurement: 63 Screening for High Blood Pressure: < First Hypertensive BP, F/U Documented > [ S9241] First Hypertensive Follow-up Interventions: Referral to alternative/primary care provider. - Advance Directives Quality Measure: Measure #47: Care Plan Advance Directives Established: No Advance Directives Information Provided To Patient: No Advance Directives on File: No Living Will: No Power of Visual Display Associate: No Advance Care Planning: <Care Plan/Decision Maker Not Decided; Discussed & Documented> [9414F] - Elder Abuse Suspicion Index Screening: Elder Abuse Suspicion Index Screening Rely on people for bathing, dressing, shopping, banking, etc: No Prevented from getting food, clothes, medication, etc: No Made to feel shamed or threatened by someone: No Forced to sign papers or use money against will: No Feel afraid, touched in ways not wanted or hurt physically: No Poor eye contact, withdrawn, malnourished, cuts or bruises: No Screening Result: Negative result EASI Reference Information: Yoandy ACEVES, Nicole C, Rei D, Fabrizio Moore.Development and validation of a tool to assist physicians identification of elder abuse: The Elder Abuse Suspicion Index (EASI ). Journal of Elder Abuse and Neglect, 2008; 20 (3): 276-300. - Elder Maltreatment Screen Quality Measures: Elder Maltreatment Screen and Follow-Up Plan Elder Maltreatment Screen: <Negative, No Follow-Up Plan Required> [S5935]
--- NOTE | 2017-06-21 19:13 | MR ANGIOGRAM REPORT ---
EXAM: MRI ANGIOGRAPHY NECK MRA W/WO CONTRAST HISTORY: SYNCOPE. TECHNIQUE: MRA of the neck was performed following IV administration of 20 mL of Magnevist contrast. Axial images were obtained with coronal MIP reconstructions. COMPARISON: None. FINDINGS: Origins of the great vessels appear widely patent. Classic take-off of the great vessels from the arch of the aorta. The origins and cervical portions of the bilateral vertebral arteries appear widely patent. The bilateral common carotid arteries appear patent. Atheromatous change associated with the origin of the left internal carotid artery resulting in approximately 50% luminal narrowing. No other MRA evidence for stenosis, vascular encasement, or displacement within the neck. 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 REMAINDER IS UNREMARKABLE. JOB NUMBER: [id number] [facility]
[2017-06-22] MEDS ORDERED: ENOXAPARIN 40 MG/0.4 ML SYR SQ SCH (10:00)
== END 2017-06-21 15:27 | disposition home health service (06) ==
LOC: ER 12:12 → MEDSURG 14:43
PROVIDERS: ADMIT Internal Medicine; ATTEND Internal Medicine
DX: R55 Syncope and collapse (principal); E11.9 Type 2 diabetes mellitus without complications; Z79.4 Long term (current) use of insulin
CPT/HCPCS: 36416; 70450; 70549; 80053; 80061; 82948; 83036; 83735; 84484; 85025; 85027; 85610; 85730; 93005; 93010; 93880; 94760; 94761; 96372; 99217; 99220; 99285

== ENCOUNTER 2017-09-18 14:22 | Emergency (ER) | payer MEDICARE ==
[2017-09-18] MEDS ORDERED: HUMULIN R 100 UNIT/ML VIAL SC ONE (14:23)
[2017-09-18] MEDS ORDERED: ASPIRIN 81 MG CHEWABLE TABLET PO ONE (14:50)
[2017-09-18] MEDS: NITROGLYCERIN 0.4MG SL TABLET #25 BTL SL PRN ×3 (15:05→15:18)
[2017-09-18 15:12] LABS: BASO % 0.5 % (0-6); EOS % 3.2 % (0-6); GRAN % 61.2 % (47-80); HEMATOCRIT 31.8 % (42.0-52.0); HEMOGLOBIN 9.3 gm/dl (14.0-18.0); MEAN CORPUSCULAR HEMOGLOBIN 18.7 pg (27-33); MEAN CORPUSCULAR HGB CONC 29.2 g/dl (32-36); MONO % 9.1 % (0-9); PLATELET COUNT 334 K/uL (130-400); RED BLOOD COUNT 4.97 M/uL (4.40-5.70); RED CELL DISTRIBUTION WIDTH 19.3 % (11.5-14.5); WHITE BLOOD COUNT W/O DIFF 5.6 K/uL (4.2-12.2)
[2017-09-18 15:24] LABS: BLOOD UREA NITROGEN 21 mg/dL (8-23); CREATININE 1.1 mg/dL (0.7-1.2); EST GLOMERULAR FILTRATION RATE > 60 mL/min
[2017-09-18 15:27] LABS: GLUCOSE,RANDOM 346 mg/dL (74-109)
[2017-09-18 15:30] LABS: CREATINE PHOSPHOKINASE 396 U/L (39-308)
[2017-09-18 15:32] LABS: CKMB 13.2 ng/mL (<6.73)
[2017-09-18 15:35] LABS: CKMB RELATIVE INDEX 3.33 % (0-4)
[2017-09-18] MEDS ORDERED: HEPARIN SODIUM 1000 UNIT/1 ML 10ML VIAL IVP ONE (15:58)
[2017-09-18] MEDS ORDERED: HEPARIN SODIUM/D5W 25,000 UNITS/500 ML BAG IV SCH ×2 (16:00→16:30)
--- NOTE | 2017-09-18 17:28 | Emergency Department Record ---
History of Present Illness - General Chief Complaint: Chest Pain Stated Complaint: CHEST PAIN Time Seen by Provider: 09/18/17 14:45 Source: Patient Mode of Arrival: Ambulatory Limitations: No limitations - History of Present Illness Initial Comments: pt developed cpseveral hours ago. it has been constant. it feels like his previous cardiac type cp. he has extensive cardiac hx. MD Complaint: Chest pain Onset/Timin -: Hour(s) Onset: During exertion Pain Location: Substernal, Left chest Pain Radiation: LUE Quality: Heaviness Improves With: Nothing Worsens With: Nothing - Related Data Allergies Allergy/AdvReac Type Severity Reaction Status Date / Time levofloxacin [From LEVAQUIN] Allergy Unknown HIVES Unverified 07/02/17 11:57 Travel Screening - Travel/Exposure Within Last 30 Days Have you traveled within the last 30 days?: No - Travel/Exposure Within Last Year Have you traveled outside the [place] in the last year?: No - Additonal Travel Details Have you been exposed to anyone with a communicable illness?: No - Travel Symptoms Symptom Screening: None Review of Systems Reviewed: No additional complaints except as noted below Constitutional: Reports: As per HPI. Denies: Chills, Fever, Malaise, Night sweats, Weakness, Weight change Eyes: Reports: As per HPI. Denies: Eye discharge, Eye pain, Photophobia, Vision change ENT: Reports: As per HPI. Denies: Congestion, Dental pain, Ear pain, Epistaxis , Hearing loss, Throat pain Respiratory: Reports: As per HPI. Denies: Cough, Dyspnea, Hemoptysis, Stridor, Wheezes Cardiovascular: Reports: As per HPI, Chest pain. Denies: Arrhythmia, Dyspnea on exertion, Edema, Murmurs, Orthopnea, Palpitations, Paroxysmal nocturnal dyspnea, Rheumatic Fever, Syncope Endocrine: Reports: As per HPI. Denies: Fatigue, Heat or cold intolerance, Polydipsia, Polyuria Gastrointestinal: Reports: As per HPI. Denies: Abdominal pain, Constipation, Diarrhea, Hematemesis, Hematochezia, Melena, Nausea, Vomiting Genitourinary: Reports: As per HPI. Denies: Dysuria, Frequency, Hematuria, Incontinence, Retention, Testicular pain, Testicular mass, Urgency Musculoskeletal: Reports: As per HPI. Denies: Arthralgia, Back pain, Gout, Joint swelling, Myalgia, Neck pain Skin: Reports: As per HPI. Denies: Bruising, Change in color, Change in hair/ nails, Lesions, Pruritus, Rash Neurological: Reports: As per HPI. Denies: Abnormal gait, Confusion, Headache, Numbness, Paresthesias, Seizure, Tingling, Tremors, Vertigo, Weakness Psychiatric: Reports: As per HPI. Denies: Anxiety, Auditory hallucinations, Depression, Homicidal thoughts, Suicidal thoughts, Visual hallucinations Hematological/Lymphatic: Reports: As per HPI. Denies: Anemia, Blood Clots, Easy bleeding, Easy bruising, Swollen glands Past Medical History - SOCIAL HISTORY Smoking Status: Never smoker Alcohol Use: None Drug Use: None - RESPIRATORY Hx Respiratory Disorders: No - CARDIOVASCULAR Hx Cardio Disorders: Yes Hx Cardiac Cath: Yes (8 stents, triple bypass) Hx Heart Attack: Yes - NEURO Hx Neuro Disorders: No Hx Dizziness: Yes - GI Hx GI Disorders: Yes Hx Reflux: Yes Comment:: hx of dysphagia - Hx Genitourinary Disorders: No - ENDOCRINE Hx Endocrine Disorders: Yes - MUSCULOSKELETAL Hx Musculoskeletal Disorders: No Hx Back Injury: Yes - PSYCH Hx Psych Problems: No - HEMATOLOGY/ONCOLOGY Hx Hematology/Oncology Disorders: Yes Hx Cancer: Yes (bladder) Hx Chemotherapy: No Hx Radiation Therapy: No Family Medical History Any Significant Family History?: No Hx Cancer: Brother/Sister Hx Dementia: Father, Brother/Sister Hx Heart Disease: Mother, Brother/Sister Physical Exam - General General Appearance: Alert, Oriented x3, Cooperative, Mild distress - Head Head exam: Normal inspection - Eye Eye exam: Normal appearance, PERRL, EOMI Pupils: Normal accommodation - ENT ENT exam: Normal exam, Mucous membranes moist, Normal external ear exam, Normal orophraynx, TM's normal bilaterally Ear exam: Normal external inspection. negative: External canal tenderness Nasal Exam: Normal inspection. negative: Discharge, Sinus tenderness Mouth exam: Normal external inspection, Tongue normal Teeth exam: Normal inspection. negative: Dental caries Throat exam: Normal inspection. negative: Tonsillar erythema, Tonsillar exudate - Neck Neck exam: Normal inspection, Full ROM. negative: Tenderness - Respiratory Respiratory exam: Normal lung sounds bilaterally. negative: Respiratory distress - Cardiovascular Cardiovascular Exam: Regular rate, Normal rhythm, Normal heart sounds - GI/Abdominal GI/Abdominal exam: Soft, Normal bowel sounds. negative: Tenderness - Rectal Rectal exam: Deferred - exam: Deferred - Extremities Extremities exam: Normal inspection, Full ROM, Normal capillary refill. negative: Tenderness - Back Back exam: Reports: Normal inspection, Full ROM. Denies: Muscle spasm, Rash noted, Tenderness - Neurological Neurological exam: Alert, CN II-XII intact, Normal gait, Oriented X3 - Psychiatric Psychiatric exam: Normal affect, Normal mood - Skin Skin exam: Dry, Intact, Normal color, Warm Course Vital Signs 09/18/17 09/18/17 09/18/17 14:27 15:00 15:03 Temperature 98.3 F Pulse Rate 94 H Pulse Rate [ 86 87 Pulse Ox Probe] Respiratory 18 16 16 Rate Blood Pressure 177/64 Blood Pressure 159/68 156/73 [Left Arm] Pulse Ox 98 98 98 09/18/17 09/18/17 09/18/17 15:23 16:00 17:11 Temperature Pulse Rate Pulse Rate [ 16 L 85 79 Pulse Ox Probe] Respiratory 16 16 16 Rate Blood Pressure Blood Pressure 121/61 134/69 128/62 [Left Arm] Pulse Ox 98 - Reevaluation(s) Reevaluation #1: 09/18/17 18:44 ntg makes pain better Medical Decision Making - Lab Data Result diagrams: 09/18/17 14:35 09/18/17 14:35 Lab Results 09/18/17 09/18/17 09/18/17 Range/Units 14:35 14:35 14:35 WBC 5.6 (4.2-12.2) K/uL RBC 4.97 (4.40-5.70) M/uL Hgb 9.3 L (14.0-18.0) gm/dl Hct 31.8 L (42.0-52.0) % MCV 64.0 L (81-97) fl MCH 18.7 L (27-33) pg MCHC 29.2 L (32-36) g/dl RDW 19.3 H (11.5-14.5) % Plt Count 334 (130-400) K/uL MPV 10.0 (7.4-10.4) fl Gran % 61.2 (47-80) % Lymphocytes % 26.0 (16-45) % Monocytes % 9.1 H (0-9) % Eosinophils % 3.2 (0-6) % Basophils % 0.5 (0-6) % APTT (24.5-39.1) SECONDS D-Dimer 1.14 H (0-0.59) mg/L FEU Sodium 136 (136-145) mmol/L Potassium 4.6 H (3.4-4.5) mmol/L Chloride 97 L (98-107) mmol/L Carbon Dioxide 27.0 (22-29) mmol/L Anion Gap 12.0 (7-16) BUN 21 (8-23) mg/dL Creatinine 1.1 (0.7-1.2) mg/dL Estimated GFR > 60 mL/min Random Glucose 346 H (74-109) mg/dL Calcium 8.8 (8.8-10.2) mg/dL Creatine Kinase 396 H (39-308) U/L CK-MB (CK-2) 13.2 H (<6.73) ng/mL CK-MB (CK-2) Rel Index 3.33 (0-4) % Troponin T 0.012 H (0-0.010) ng/mL 09/18/17 09/18/17 Range/Units 14:35 14:35 WBC (4.2-12.2) K/uL RBC (4.40-5.70) M/uL Hgb (14.0-18.0) gm/dl Hct (42.0-52.0) % MCV (81-97) fl MCH (27-33) pg MCHC (32-36) g/dl RDW (11.5-14.5) % Plt Count (130-400) K/uL MPV (7.4-10.4) fl Gran % (47-80) % Lymphocytes % (16-45) % Monocytes % (0-9) % Eosinophils % (0-6) % Basophils % (0-6) % APTT 25.7 (24.5-39.1) SECONDS D-Dimer (0-0.59) mg/L FEU Sodium (136-145) mmol/L Potassium (3.4-4.5) mmol/L Chloride (98-107) mmol/L Carbon Dioxide (22-29) mmol/L Anion Gap (7-16) BUN (8-23) mg/dL Creatinine (0.7-1.2) mg/dL Estimated GFR mL/min Random Glucose (74-109) mg/dL Calcium (8.8-10.2) mg/dL Creatine Kinase 396 H (39-308) U/L CK-MB (CK-2) (<6.73) ng/mL CK-MB (CK-2) Rel Index (0-4) % Troponin T (0-0.010) ng/mL Disposition Disposition: Transfer Clinical Impression: Pulmonary embolism Qualifiers: Pulmonary embolism type: other Chronicity: acute Acute cor pulmonale presence: without acute cor pulmonale Qualified Code(s): I26.99 - Other pulmonary embolism without acute cor pulmonale Chest pain Qualifiers: Chest pain type: chest pain due to myocardial ischemia Ischemic chest pain type : unspecified angina pectoris type Qualified Code(s): I25.9 - Chronic ischemic heart disease, unspecified Disposition: Acute Care Hospital Transfer Transfer To: [facility] Reason For Transfer: needs pbx mechanic Accepting Physician: dr doss Time Discussed w/Accepting Physician: 18:43 Forms: Patient Portal Access Quality - Quality Measures Quality Measures: N/A - Blood Pressure Screening Does Patient Have Any of the Following: Active Dx of HTN Blood Pressure Classification: Hypertensive Reading Systolic Measurement: 177 Diastolic Measurement: 64 Screening for High Blood Pressure: Patient Exclusion, Hx of HTN [G9744]
[2017-09-18] MEDS ORDERED: NITROGLYCERIN/D5W 50 MG/250 ML ML IV SCH (17:30)
[2017-09-18] MEDS ORDERED: HUMULIN R 100 UNIT/ML VIAL SQ ONE (18:44)
--- NOTE | 2017-09-19 09:42 | CT ANGIOGRAM REPORT ---
EXAM: CTA OF THE CHEST FOR PE WITH POST PROCESSING HISTORY: CHEST PAIN, ELEVATED D-DIMER, POSSIBLE PE. TECHNIQUE: CTA of the chest was performed following the intravenous administration of 75 ml of Omnipaque 350 as the IV contrast. Post processing on an independent workstation was performed with multiple 3D MIP series obtained. Comparison: Prior chest CTA 05/21/14. Chest x-ray dated 03/17/16. FINDINGS: There does appear to be a single small focus of peripheral PE in the right upper lobe. Elsewhere no PE identified. Postop sternotomy as before. Coronary artery calcification again evident. No thoracic aortic aneurysm or dissection is seen. No pleural or pericardial effusion evident. Some normal sized mediastinal nodes are seen, but no definite hilar or mediastinal adenopathy identified. Some mild focal scarring in the upper pole of the right kidney again seen which may be sequela of chronic atrophic pyelonephritis. Postop change in the lower cervical spine also evident. No pneumothorax identified. No acute infiltrate identified. There is chronic anterior wedging of a mid thoracic vertebra also noted previously. Mild thoracic curve to the right. IMPRESSION: 1. AN APPARENT SINGLE SMALL FOCUS OF PERIPHERAL PE IN THE RIGHT UPPER LOBE. ELSEWHERE NO PE IDENTIFIED. 2. POSTOP STERNOTOMY. POSTOP ANTERIOR CERVICAL FUSION PARTIALLY SEEN ON THE UPPER IMAGES WELL. 3. 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 4. CORONARY ARTERY CALCIFICATION. 5. 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 JOB NUMBER: [id number] [facility]
== END 2017-09-18 19:51 | disposition short-term general hospital (02) ==
LOC: ER 14:22
DX: I26.99 Other pulmonary embolism without acute cor pulmonale (principal); I25.9 Chronic ischemic heart disease, unspecified; I10 Essential (primary) hypertension; R11.0 Nausea; R55 Syncope and collapse; E11.9 Type 2 diabetes mellitus without complications; Z79.4 Long term (current) use of insulin; I25.2 Old myocardial infarction; Z95.5 Presence of coronary angioplasty implant and graft
CPT/HCPCS: 99285 ×2; 96372; 96365; 96366; 96375; 82550; 85025; 85730; 82553; 80048; 84484; 85379; 71275; 93005; 93010; Q9967; J1815

== ENCOUNTER 2017-11-10 10:38 | Emergency (ER) | payer MEDICARE ==
[2017-11-10] MEDS ORDERED: NITROGLYCERIN 0.4MG SL TABLET #25 BTL SL PRN (10:44)
[2017-11-10] MEDS ORDERED: ASPIRIN 81 MG CHEWABLE TABLET PO ONE (10:44)
--- NOTE | 2017-11-10 10:45 | Emergency Department Record ---
History of Present Illness - General Chief Complaint: Chest Pain Stated Complaint: CHEST PAIN Time Seen by Provider: 11/10/17 10:38 Source: Patient Mode of Arrival: Ambulatory Limitations: No limitations - History of Present Illness Initial Comments: 81 yo male presents with chest pain. His pain is similar to a heart attach he states he had. He woke up around 4:30am. The pain has been present since that time. He reports he has a 2pm appointment with Dr Buckley of [facility]. He reports he was at [facility] in the last one week. He reports he has known CAD with 8 coronary stents. His last ED visit was 09/18/17 at [facility] on the EMR. He states his last cath was many years ago. He does not know dates. He states he has had several heart attacks in the past. Today's discomfort is a heavy feeling across the chest to the neck. He had similar symptoms in August. A CTA of the chest that demonstrated coronary calcification and a single, small PE is a peripheral artery. He is on Eliquis. His troponin at that time was 0.015. He was transferred to [facility]. MD Complaint: Chest pain -: Hour(s) (5) Onset: During rest Pain Location: Substernal Pain Radiation: None Severity: Moderate Consistency: Constant Improves With: Nothing Worsens With: Exertion Context: Recent illness Anginal Symptoms: Dyspnea - Related Data Allergies Allergy/AdvReac Type Severity Reaction Status Date / Time levofloxacin [From LEVAQUIN] Allergy Unknown HIVES Verified 11/10/17 10:39 Past Medical History - SOCIAL HISTORY Smoking Status: Never smoker Drug Use: None - RESPIRATORY Hx Respiratory Disorders: No - CARDIOVASCULAR Hx Cardio Disorders: Yes Hx Cardiac Cath: Yes (8 stents, triple bypass) Hx Heart Attack: Yes - NEURO Hx Neuro Disorders: No Hx Dizziness: Yes - GI Hx GI Disorders: Yes Hx Reflux: Yes Comment:: hx of dysphagia - Hx Genitourinary Disorders: No - ENDOCRINE Hx Endocrine Disorders: Yes - MUSCULOSKELETAL Hx Musculoskeletal Disorders: No Hx Back Injury: Yes - PSYCH Hx Psych Problems: No - HEMATOLOGY/ONCOLOGY Hx Hematology/Oncology Disorders: Yes Hx Cancer: Yes (bladder) Hx Chemotherapy: No Hx Radiation Therapy: No Family Medical History Hx Cancer: Brother/Sister Hx Dementia: Father, Brother/Sister Hx Heart Disease: Mother, Brother/Sister Physical Exam - General General Appearance: Alert, Oriented x3, Cooperative, No acute distress Limitations: No limitations - Head Head exam: Normal inspection - Eye Eye exam: Normal appearance, PERRL. negative: Conjunctival injection, Scleral icterus - ENT ENT exam: Normal exam Ear exam: Normal external inspection Nasal Exam: Normal inspection Mouth exam: Normal external inspection Teeth exam: Normal inspection - Neck Neck exam: Normal inspection - Respiratory Respiratory exam: Normal lung sounds bilaterally. negative: Respiratory distress - Cardiovascular Cardiovascular Exam: Regular rate, Normal rhythm, Normal heart sounds Peripheral Pulses: 2+: Radial (R), Radial (L) - GI/Abdominal GI/Abdominal exam: Soft - Rectal Rectal exam: Deferred - exam: Deferred - Extremities Extremities exam: Normal inspection. negative: Pedal edema - Back Back exam: Reports: Normal inspection, Full ROM. Denies: Muscle spasm, Rash noted, Tenderness - Neurological Neurological exam: Alert, Normal gait, Oriented X3 - Psychiatric Psychiatric exam: Normal affect, Normal mood - Skin Skin exam: Dry, Intact, Normal color, Warm Course - Reevaluation(s) Reevaluation #1: EKG 1042 NSR rate is 89, intervals normal, axis normal, ST no acute changes. NO changes on the EKG from 09/18/17. 11/10/17 10:48 11/10/17 10:49 EMR reviewed Last ED visit was 09/18/17. He had an indeterminate troponin and was transferred to [facility]. 11/10/17 10:51 09/19/17 ECHO reviewed EF 55-60%, Mild LVH, 11/10/17 11:24 The labs were reviewed Troponin is 0.016 The CK and MB are mildly elevated but unchanged from prior. [facility] was contacted waiting for DC summary from August. 11/10/17 11:37 There are no acute changes on the EKG from the prior. His cardiac enzymes are similar to his baseline. Given his recent PE a CTA was ordered as well. He is on Eliquis. 11/10/17 11:58 The discharge summary from [facility] was reviewed He had a cardiology consultation. Per the DC summary he has stable angina. No stress test performed. Returned from CT Cardiology consult placed. 11/10/17 13:24 The chest CTA was negative. The PE resolved A cardiology consultation was completed in the ED Dr Buckley saw the patient and feels he has stable chronic angina He recommends the patient is stable and does not recommend acute intervention or testing from the ED He will arrange an outpatient stress test 11/10/17 18:18 Medical Decision Making - Lab Data Result diagrams: 11/10/17 10:45 11/10/17 10:45 Disposition Disposition: Discharge Clinical Impression: Chest pain Disposition: Home, Self-Care Condition: (1) Good Instructions: Chest Pain (ED) Additional Instructions: Return to the ED if you have chest pain Call to follow up for your stress test as scheduled Follow up with Dr Buckley as scheduled Forms: Patient Portal Access Time of Disposition: 13:25 Quality - Quality Measures Quality Measures: N/A - Blood Pressure Screening Does Patient Have Any of the Following: No Blood Pressure Classification: Pre-Hypertensive BP Reading Systolic Measurement: 131 Diastolic Measurement: 53 Screening for High Blood Pressure: < Pre-Hypertensive BP, F/U Documented > [ G8950] Pre-Hypertensive Follow-up Interventions: Referral to alternative/primary care provider.
[2017-11-10 10:51] LABS: BASO % 0.7 % (0-6); EOS % 3.3 % (0-6); GRAN % 50.9 % (47-80); HEMATOCRIT 34.8 % (42.0-52.0); HEMOGLOBIN 10.2 gm/dl (14.0-18.0); LYMPH % 35.5 % (16-45); MEAN CELL VOLUME 67.4 fl (81-97); MEAN CORPUSCULAR HGB CONC 29.3 g/dl (32-36); MEAN PLATELET VOLUME 8.9 fl (7.4-10.4); MONO % 9.6 % (0-9); PLATELET COUNT 287 K/uL (130-400); RED BLOOD COUNT 5.16 M/uL (4.40-5.70); RED CELL DISTRIBUTION WIDTH 21.3 % (11.5-14.5); WHITE BLOOD COUNT W/O DIFF 5.5 K/uL (4.2-12.2)
[2017-11-10 10:52] LABS: MEAN CORPUSCULAR HEMOGLOBIN 19.7 pg (27-33)
[2017-11-10 11:03] LABS: BILIRUBIN,TOTAL < 0.20 mg/dL (0.2-1.0); BLOOD UREA NITROGEN 18 mg/dL (8-23); CREATININE 0.9 mg/dL (0.7-1.2); EST GLOMERULAR FILTRATION RATE > 60 mL/min
[2017-11-10 11:04] LABS: TOTAL PROTEIN 7.1 g/dL (6.6-8.7)
[2017-11-10 11:05] LABS: PARTIAL THROMBOPLASTIN TIME 29.3 SECONDS (24.5-39.1); PROTHROMBIN TIME (PATIENT) 10.3 SECONDS (9.5-12.1)
[2017-11-10 11:06] LABS: GLUCOSE,RANDOM 81 mg/dL (74-109)
[2017-11-10 11:08] LABS: ALT/SGPT 19 U/L (<41)
[2017-11-10 11:09] LABS: ALB/GLOB RATIO 1.4 (1.1-1.8); ALBUMIN 4.2 g/dL (4.0-5.0); ALKALINE PHOSPHATASE 66 U/L (40-129); AST/SGOT 21 U/L (10.0-50.0)
[2017-11-10 11:15] LABS: CKMB 12.5 ng/mL (<6.73); CREATINE PHOSPHOKINASE 358 U/L (39-308)
[2017-11-10] MEDS ORDERED: ACETAMINOPHEN 1,000 MG/100 ML BTL IVPB ONE (11:25)
[2017-11-10] MEDS ORDERED: HYDROMORPHONE HCL 2 MG/ML VIAL IVP ONE (11:29)
--- NOTE | 2017-11-11 09:35 | RADIOLOGY REPORT ---
EXAM: PORTABLE CHEST HISTORY: CHEST PAIN SINCE THIS MORNING AND ALSO PAIN IN THE NECK AND LEFT ARM. SHORTNESS OF BREATH. PRIOR CABG. TECHNIQUE: A single AP upright portable chest was obtained. Comparison: Two view chest 03/17/16. FINDINGS: Postop sternotomy as before, along with postop lower cervical anterior fusion. Persistent blunting of the left lateral costophrenic angle similar to before may represent chronic pleural thickening given its ongoing appearance. No acute infiltrate is seen. No pneumothorax evident. Postop changes left shoulder again noted. Stable heart size, within normal limits. No definite vascular congestion identified. IMPRESSION: 1. POSTOP CHANGES BEFORE INCLUDING STERNOTOMY, LOW ANTERIOR CERVICAL FUSION , AND LEFT SHOULDER SURGERY. 2. STABLE HEART SIZE, WITHIN NORMAL LIMITS. 3. PERSISTENT BLUNTING OF THE LEFT LATERAL COSTOPHRENIC ANGLE MAY REPRESENT PLEURAL THICKENING OR PERSISTENT/RECURRENT PLEURAL EFFUSION. 4. NO ACUTE INFILTRATE EVIDENT. JOB NUMBER: [id number] [facility]
--- NOTE | 2017-11-11 10:43 | CT ANGIOGRAM REPORT ---
EXAM: EMERGENCY CTA OF THE CHEST FOR PE WITH CONTRAST WITH POST PROCESSING HISTORY: CHEST PAIN, RECENT SMALL PE. TECHNIQUE: CTA of the chest was performed following the intravenous administration of 90 ml of Omnipaque 350 as the IV contrast. Post processing on an independent workstation was performed with multiple 3D MIP series obtained. Comparison: Prior chest CTA dated 09/18/17. FINDINGS: No definite PE identified today. The small focus of PE previously noted in the right upper lobe is no longer apparent. Postop sternotomy as before with prominent coronary artery calcification. No thoracic aortic aneurysm or dissection is identified. Some normal sized mediastinal nodes are again seen with no definite progressive hilar or mediastinal adenopathy identified. No pleural or pericardial effusion evident. Focal scarring upper pole right kidney again evident, presumably sequela of chronic atrophic pyelonephritis. Postop low anterior cervical fusion again evident. No acute infiltrate is identified. No pleural effusion evident and the blunting of the left lateral costophrenic angle on the current chest x-ray is apparently related to some mild pleural thickening. Hypertrophic spurring in the spine. There is some mild stenosis in the proximal SMA. Prominent spurring in the thoracic spine. There is chronic anterior wedging of a mid thoracic vertebra as well. IMPRESSION: 1. NO DEFINITE PE IDENTIFIED. SMALL AMOUNT OF PE IN THE RIGHT UPPER LOBE PREVIOUSLY SEEN ON 09/18/17 NO LONGER APPARENT. 2. POSTOP STERNOTOMY WITH CORONARY ARTERY CALCIFICATION. 3. NO PLEURAL EFFUSION EVIDENT. 4. POSTOP LOW ANTERIOR CERVICAL FUSION BEFORE. 5. FOCAL SCARRING UPPER POLE RIGHT KIDNEY BEFORE. 6. SOME MILD STENOSIS IN THE PROXIMAL SMA INCIDENTALLY NOTED IN THE UPPER ABDOMEN. 7. 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 JOB [facility]BER: [id number] [facility]
--- NOTE | 2017-11-11 11:31 | Medical Records Consult ---
DATE OF CONSULTATION: 11/10/2017 HISTORY OF PRESENT ILLNESS: The patient is an 80-year-old male well known to [facility], has long-standing coronary artery disease. He awoke this morning at about 5:30 in the morning with an episode of chest discomfort. He did not take the sublingual nitroglycerin. He elected to come to the ED. In the ED he was given IV pain medication and his symptoms quickly dissipated. While in the ED, he had no acute changes on his electrocardiogram nor did he have any elevation of his serum troponin. By the time I saw him, which was about 1:15 in the afternoon, he was completely pain free resting comfortably on a gurney. His previous hospitalization was on 09/18/2017 when he was transferred from [place] to [facility]. He was having similar chest discomfort but a small right upper lobe pulmonary embolus was noted. He also had a syncopal episode at the time. He was started on IV heparin, switched over to Lovenox and eventually switched over to Coumadin. He has been home now for about 6 weeks and this is the first episode of chest discomfort he has had since that time. His last catheterization was in 2014 at the hands of Dr. Kvng Oconnor. That study was reviewed and the bottom line is that on that catheterization, he had some in-stent restenosis which was taken care of with balloon angioplasty. He had diffusely diseased small-caliber circumflex with a 40% stenosis in the proximal and a 50% in the mid segment. He had an occluded right coronary artery in the proximal segment but a patent saphenous vein graft to the PDA with good distal flow and a patent radial gap to the OM with good distal flow and a patent RODGERS to the diagonal with good distal flow. His last nuclear study was in 2014 and that was reported as no evidence of ischemia and a normal ejection fraction at 80%. Further clinical history includes insulin-dependent diabetes mellitus, hyperlipidemia, cancer of the bladder, GERD, diabetic neuropathy, and coronary artery disease. His last left ventricular function was normal at 70%. REVIEW OF SYSTEMS: On further review of systems, patient complains of decreased energy and fatigue. HEENT: The patient wears eyeglasses for reading. No other visual problems. The patient does have a hearing loss. Respiratory: He does have moderate dyspnea with exertion. Cardiovascular, reported chief complaint. GI: History of GERD. Genitourinary: History of bladder cancer. Has urostomy currently. Musculoskeletal: No history of significant back problems or other arthritis. Neurological: The patient has bilateral tingling of both hands, positional vertigo in the past. No history of depression, substance abuse, or change in cognitive function. Endocrine: Insulin-dependent diabetes mellitus. SOCIAL HISTORY: No history of alcohol use. He has never smoked. He is following a diabetic diet. No substance abuse. Sixth-grade education. Retired from [employer]. PHYSICAL EXAMINATION: GENERAL: An 81-year-old male who is resting comfortably on a gurney in the emergency department. Valentin Barillas has done a complete physical on him. I agree with those findings. HEENT: Head is normocephalic. EENT is negative. He does have lipoma on the right side of his neck. CARDIOVASCULAR: Heart sounds are clear. First and second sounds normal. No S3, no S4. No murmurs. LUNGS: Clear to auscultation. EXTREMITIES: No evidence of peripheral edema. PSYCHIATRIC: The patient had normal affect. IMPRESSION: The current chest discomfort may or may not be cardiac in etiology. The patient has many different presentations for his chest discomfort but at least cardiac markers reveal that there is no evidence of an acute coronary syndrome. Based on the fact that his troponins are negative, he has responded to the pain medication. There is no significant change in his electrocardiogram and he has chronic coronary artery disease. I do not think admission is needed at this time. The August hospitalization at [facility] recommended an outpatient stress test. This should be done, so we will arrange for this to have a Cardiolite stress test and return visit to cardiology clinic within the next 4-7 days. ROSSY
== END 2017-11-10 13:50 | disposition home or self-care (01) ==
LOC: ER 10:38
DX: R07.2 Precordial pain (principal); R06.00 Dyspnea, unspecified; M54.2 Cervicalgia; I25.10 Atherosclerotic heart disease of native coronary artery without angina pectoris; I25.2 Old myocardial infarction; E11.9 Type 2 diabetes mellitus without complications; Z79.4 Long term (current) use of insulin; Z86.711 Personal history of pulmonary embolism; Z79.01 Long term (current) use of anticoagulants; Z95.5 Presence of coronary angioplasty implant and graft
CPT/HCPCS: 99284 ×2; 96365; 96375; 82550; 85025; 85730; 85610; 82553; 80053; 84484; 71045; 71275; 93005; 93010; Q9967; J1170

== ENCOUNTER 2017-11-20 11:47 | Emergency (ER) | payer MEDICARE ==
[2017-11-20] MEDS ORDERED: ASPIRIN 325 MG TABLET PO ONE (12:16)
[2017-11-20] MEDS ORDERED: MORPHINE SULFATE 4MG/ML PREFILLED SYRINGE IVP ONE (12:19)
--- NOTE | 2017-11-20 12:21 | Emergency Department Record ---
History of Present Illness - General Chief Complaint: Chest Pain Stated Complaint: CHEST PAIN Time Seen by Provider: 11/20/17 12:05 Source: Patient Mode of Arrival: Ambulatory Limitations: No limitations - History of Present Illness Initial Comments: The patient is here due to a retrosternal CP for the last 24 hours. The pain intermittently radiates to the arms and back. He states he has mild SOB with it but no sweating or nausea. The patient has an extensive cardiac hx and states this is his typical pain with his AK's. The patient recently was here at [facility] in August and diagnosed with a small PE and was transferred to [facility]. He had no imaging on that visit but did have a Nuclear Stress test last week that demonstrated a normal perfusion imaging. He also was in the ER 10 days ago and had a neg chest CT for PE or Dissection. MD Complaint: Chest pain Onset/Timin -: Days(s) Onset: During rest Pain Location: Left chest, Right chest, Other Pain Radiation: Back Severity: Severe Severity scale (1-10): 7 Quality: Other Consistency: Constant Improves With: Nothing Worsens With: Nothing Treatments Prior to Arrival: None - Related Data Allergies Allergy/AdvReac Type Severity Reaction Status Date / Time levofloxacin [From LEVAQUIN] Allergy Unknown HIVES Verified 11/20/17 11:52 Travel Screening - Travel/Exposure Within Last 30 Days Have you traveled within the last 30 days?: No Review of Systems Constitutional: Denies: Chills, Fever Eyes: Denies: Eye discharge ENT: Denies: Congestion Respiratory: Denies: Cough Cardiovascular: Reports: Chest pain Endocrine: Denies: Fatigue Gastrointestinal: Denies: Diarrhea Genitourinary: Denies: Dysuria Musculoskeletal: Denies: Arthralgia Past Medical History - SOCIAL HISTORY Smoking Status: Never smoker Alcohol Use: None Drug Use: None - RESPIRATORY Hx Respiratory Disorders: No - CARDIOVASCULAR Hx Cardio Disorders: Yes Hx Cardiac Cath: Yes (8 stents, triple bypass) Hx Heart Attack: Yes - NEURO Hx Neuro Disorders: Yes Hx Dizziness: Yes - GI Hx GI Disorders: Yes Hx Reflux: Yes Comment:: hx of dysphagia - Hx Genitourinary Disorders: No - ENDOCRINE Hx Endocrine Disorders: Yes - MUSCULOSKELETAL Hx Musculoskeletal Disorders: Yes Hx Back Injury: Yes - PSYCH Hx Psych Problems: No - HEMATOLOGY/ONCOLOGY Hx Hematology/Oncology Disorders: Yes Hx Cancer: Yes (bladder) Hx Chemotherapy: No Hx Radiation Therapy: No Family Medical History Any Significant Family History?: Yes Hx Cancer: Brother/Sister Hx Dementia: Father, Brother/Sister Hx Heart Disease: Mother, Brother/Sister Physical Exam - General General Appearance: Alert, Oriented x3, Cooperative, No acute distress - Head Head exam: Atraumatic, Normocephalic, Normal inspection - Eye Eye exam: Normal appearance, PERRL - ENT Throat exam: Normal inspection. negative: Tonsillar erythema, Tonsillar exudate - Neck Neck exam: Normal inspection, Full ROM. negative: Tenderness - Respiratory Respiratory exam: Normal lung sounds bilaterally. negative: Respiratory distress - Cardiovascular Cardiovascular Exam: Regular rate, Normal rhythm, Normal heart sounds. negative : Diastolic murmur, Systolic murmur - GI/Abdominal GI/Abdominal exam: Soft, Normal bowel sounds. negative: Tenderness - Extremities Extremities exam: Normal inspection, Full ROM, Normal capillary refill. negative: Tenderness - Back Back exam: Reports: Normal inspection - Neurological Neurological exam: Alert, Normal gait. negative: Abnormal gait, Motor sensory deficit Course Vital Signs 11/20/17 11:49 Temperature 98.4 F Pulse Rate 87 Respiratory 20 Rate Blood Pressure 166/81 Pulse Ox 96 - Reevaluation(s) Reevaluation #1: The patient is resting comfortably at this time. I did discuss the issues with him and the need possibly for further testing due to his cardiac enzymes. The patient used to see [facility] but states he did get a letter that they no longer come here to [facility]. The patient states he would like to continue to see his Store Person at [facility] so I did explain to him that the [facility] group will continue to see patient's here at [facility]. The patient then stated he does not like some of the [facility] Cardiologists so he would like to switch to [facility]. 11/20/17 13:05 Reevaluation #2: The patient is resting comfortably and states his pain is better. Since he has not taken his Eliquis this AM we will start him on a Heparin drip but no bolus. I did discuss the case with Dr. Hdz and he does accept the patient to [facility]. 11/20/17 13:17 11/20/17 13:20 Medical Decision Making - Data Complexity MDM Data: EKG Ordered and/or Reviewed - Lab Data Result diagrams: 11/20/17 11:55 11/20/17 12:35 - EKG Data -: EKG Interpreted by Me EKG: No Acute Changes, Unchanged From Previous Disposition Disposition: Transfer Clinical Impression: Chest pain Qualifiers: Chest pain type: unspecified Qualified Code(s): R07.9 - Chest pain, unspecified Disposition: Acute Care Hospital Transfer Transfer To: [facility] Reason For Transfer: Cardiac Ischemia Accepting Physician: Mugal Time Discussed w/Accepting Physician: 13:21 Condition: (2) Stable Forms: Patient Portal Access Time of Disposition: 13:21 Quality - Quality Measures Quality Measures: N/A - Blood Pressure Screening View Details: Yes Does Patient Have Any of the Following: No Blood Pressure Classification: Pre-Hypertensive BP Reading Systolic Measurement: 166 Diastolic Measurement: 81 Screening for High Blood Pressure: < Pre-Hypertensive BP, F/U Documented > [ G8950] Pre-Hypertensive Follow-up Interventions: Referral to alternative/primary care provider.
[2017-11-20 12:38] LABS: BASO % 0.5 % (0-6); EOS % 1.9 % (0-6); GRAN % 61.6 % (47-80); HEMATOCRIT 34.7 % (42.0-52.0); HEMOGLOBIN 10.1 gm/dl (14.0-18.0); LYMPH % 26.3 % (16-45); MEAN CELL VOLUME 66.7 fl (81-97); MEAN CORPUSCULAR HEMOGLOBIN 19.4 pg (27-33); MEAN CORPUSCULAR HGB CONC 29.1 g/dl (32-36); MEAN PLATELET VOLUME 10.1 fl (7.4-10.4); MONO % 9.7 % (0-9); PLATELET COUNT 345 K/uL (130-400); WHITE BLOOD COUNT W/O DIFF 6.3 K/uL (4.2-12.2)
[2017-11-20 12:51] LABS: BLOOD UREA NITROGEN 24 mg/dL (8-23); EST GLOMERULAR FILTRATION RATE > 60 mL/min; INR 0.9; PARTIAL THROMBOPLASTIN TIME 26.1 SECONDS (24.5-39.1)
[2017-11-20 12:54] LABS: GLUCOSE,RANDOM 146 mg/dL (74-109)
[2017-11-20 12:57] LABS: CREATINE PHOSPHOKINASE 286 U/L (39-308)
[2017-11-20 12:59] LABS: CKMB 11.9 ng/mL (<6.73)
[2017-11-20] MEDS ORDERED: HEPARIN SODIUM/D5W 25,000 UNITS/500 ML BAG IV SCH (13:15)
[2017-11-20] MEDS ORDERED: HEPARIN SODIUM 1000 UNIT/1 ML 10ML VIAL IVP ONE (13:15)
== END 2017-11-20 14:40 | disposition short-term general hospital (02) ==
LOC: ER 11:47
DX: I25.9 Chronic ischemic heart disease, unspecified (principal); R07.9 Chest pain, unspecified; R06.02 Shortness of breath; I25.10 Atherosclerotic heart disease of native coronary artery without angina pectoris; I25.2 Old myocardial infarction; E11.9 Type 2 diabetes mellitus without complications; Z86.711 Personal history of pulmonary embolism; Z79.01 Long term (current) use of anticoagulants; Z95.5 Presence of coronary angioplasty implant and graft; Z79.4 Long term (current) use of insulin
CPT/HCPCS: 99285 ×2; 96365; 96375; 82550; 85025; 85730; 85610; 82553; 80048; 84484; 93005; 93010; J2274

== ENCOUNTER 2018-01-01 13:06 | Observation (INO) | payer MEDICARE ==
--- NOTE | 2018-01-01 13:19 | Emergency Department Record ---
History of Present Illness - General Chief Complaint: Chest Pain Stated Complaint: CHEST PAIN Time Seen by Provider: 01/01/18 13:16 Source: Patient Mode of Arrival: Ambulatory Limitations: No limitations - History of Present Illness Initial Comments: 82 yo male presents with chest pain. The patient has a known history of CAD with prior OR. Today the pain started around 10am. He states it goes across his chest. He states it is a heavy feeling. He had some associated nausea. No vomiting. He states Dr Buckley was his in home caregiver. The patient tells me that he retired and now the patient is looking to switch to [facility] but he has not seen them yet. The EMR was reviewed. The patient was diagnosed with a small PE in August. On repeat CTA of the chest it resolved. No aneurysm or dissection noted on the most recent CTA. He was seen on November 20 with chest pain. He was transferred to [facility] at that time for chest pain work up. ED note at that time noted a recent normal stress perfusion test. 11/14/17 Normal perfusion imaging, normal functional imaging. Dr Peng. Complaint: Chest pain -: Hour(s) (4) Onset: During rest Pain Location: Substernal Pain Radiation: None Severity: Moderate Quality: Other (Heavy) Consistency: Constant Improves With: Nothing Worsens With: Nothing Context: Recent illness Anginal Symptoms: Other Treatments Prior to Arrival: None - Related Data Home Medications Medication Instructions Recorded Confirmed Last Taken Insulin NPH Human Isophane 25 unit SQ QHS 01/01/18 01/01/18 12/31/17 [Humulin N] Insulin NPH Human Isophane 35 unit SQ QAM 01/01/18 01/01/18 01/01/18 [Humulin N] Allergies Allergy/AdvReac Type Severity Reaction Status Date / Time levofloxacin [From LEVAQUIN] Allergy Unknown HIVES Verified 01/01/18 13:23 Review of Systems Constitutional: Denies: Chills, Fever, Malaise, Weakness Eyes: Denies: Eye discharge ENT: Denies: Congestion, Throat pain Respiratory: Denies: Cough, Dyspnea, Hemoptysis, Stridor, Wheezes Cardiovascular: Reports: Chest pain. Denies: Dyspnea on exertion, Edema, Palpitations, Syncope Endocrine: Denies: Fatigue, Polydipsia, Polyuria Gastrointestinal: Reports: Nausea. Denies: Abdominal pain, Constipation, Vomiting Genitourinary: Denies: Dysuria, Frequency, Hematuria Musculoskeletal: Denies: Arthralgia, Back pain, Joint swelling, Myalgia Skin: Denies: Bruising, Change in color, Rash Neurological: Denies: Confusion, Headache, Numbness Psychiatric: Denies: Anxiety Hematological/Lymphatic: Denies: Blood Clots, Easy bleeding, Easy bruising, Swollen glands Past Medical History - SOCIAL HISTORY Smoking Status: Never smoker Drug Use: None - RESPIRATORY Hx Respiratory Disorders: No - CARDIOVASCULAR Hx Cardio Disorders: Yes Hx Cardiac Cath: Yes (8 stents, triple bypass) Hx Heart Attack: Yes - NEURO Hx Neuro Disorders: Yes Hx Dizziness: Yes - GI Hx GI Disorders: Yes Hx Reflux: Yes Comment:: hx of dysphagia - Hx Genitourinary Disorders: No - ENDOCRINE Hx Endocrine Disorders: Yes - MUSCULOSKELETAL Hx Musculoskeletal Disorders: Yes Hx Back Injury: Yes - PSYCH Hx Psych Problems: No - HEMATOLOGY/ONCOLOGY Hx Hematology/Oncology Disorders: Yes Hx Cancer: Yes (bladder) Hx Chemotherapy: No Hx Radiation Therapy: No Family Medical History Hx Cancer: Brother/Sister Hx Dementia: Father, Brother/Sister Hx Heart Disease: Mother, Brother/Sister Physical Exam - General General Appearance: Alert, Oriented x3, Cooperative, No acute distress Limitations: No limitations - Head Head exam: Normal inspection - Eye Eye exam: Normal appearance, PERRL. negative: Conjunctival injection, Scleral icterus - ENT ENT exam: Normal exam, Mucous membranes moist Ear exam: Normal external inspection Nasal Exam: Normal inspection Mouth exam: Normal external inspection - Neck Neck exam: Normal inspection - Respiratory Respiratory exam: Normal lung sounds bilaterally. negative: Accessory muscle use, Chest wall tenderness, Decreased breath sounds, Respiratory distress, Rhonchi, Stridor, Wheezes - Cardiovascular Cardiovascular Exam: Regular rate, Normal rhythm, Normal heart sounds - GI/Abdominal GI/Abdominal exam: Soft. negative: Tenderness - Rectal Rectal exam: Deferred - exam: Deferred - Extremities Extremities exam: Normal inspection. negative: Pedal edema - Back Back exam: Denies: CVA tenderness (R), CVA tenderness (L) - Neurological Neurological exam: Alert, Normal gait, Oriented X3 - Psychiatric Psychiatric exam: Normal affect, Normal mood Course - Reevaluation(s) Reevaluation #1: EKG #1: 1312 Rate: 94 Rhythm: NSR [place]: Normal Intervals: Normal ST segments: No depression, no acute changes.,L[facility] Prior: 11/20/17. No acute changes from the prior ekg. 01/01/18 13:17 01/01/18 13:52 The troponin is 0.017 (November 20 is was 0.023) 01/01/18 14:13 The patient did get partial relief with the morphine Repeat EKG was performed EKG #2: 1407 Rate: 83 Rhythm: NSR [place]: Normal Intervals: Normal ST segments: No acute changes. No dynamic changes from EKG #1 or prior ekg's 01/01/18 14:28 [facility] records were requested and obtained. Admission to Dr Rothman. 11/22/17. Normal ECHO. LHC was performed. Balloon angioplasty was performed in the mid LAD stent restenosis. 01/01/18 14:41 I discussed the case with Dr Oconnor. he is very familiar with case. We discussed the results and symptoms. He recommends serial enzymes to monitor for significant changes. He does not recommend transfer to [facility] unless changes in the Troponin given no indication for immediate invasive testing. I discussed admission for serial enzymes with Willow MCL[facility]IN. The plan is for serial enzymes. Cardiology will be contacted if any significant elevation occurs. Medical Decision Making - Lab Data Result diagrams: 01/01/18 13:20 01/01/18 13:20 Disposition Disposition: Admit Clinical Impression: Chest pain Qualifiers: Chest pain type: unspecified Qualified Code(s): R07.9 - Chest pain, unspecified Disposition: Still a Patient at [facility] Decision to Admit: Admit from ER Decision to Admit Date: 01/01/18 Decision to Admit Time: 14:52 Condition: (1) Good Time of Disposition: 14:52 Quality - Quality Measures Quality Measures: N/A - Blood Pressure Screening Does Patient Have Any of the Following: Active Dx of HTN Blood Pressure Classification: Hypertensive Reading Systolic Measurement: 164 Diastolic Measurement: 71 Screening for High Blood Pressure: Patient Exclusion, Hx of HTN [[id number]]
[2018-01-01] MEDS ORDERED: ASPIRIN 81 MG CHEWABLE TABLET PO ONE (13:26)
[2018-01-01] MEDS ORDERED: NITROGLYCERIN 0.4MG SL TABLET #25 BTL SL ONE (13:26)
[2018-01-01] MEDS ORDERED: MORPHINE SULFATE 10 MG/ML VIAL IVP ONE ×2 (13:26→13:55)
[2018-01-01 13:29] LABS: BASO % 0.7 % (0-6); EOS % 3.2 % (0-6); GRAN % 59.4 % (47-80); HEMATOCRIT 33.8 % (42.0-52.0); HEMOGLOBIN 9.9 gm/dl (14.0-18.0); LYMPH % 27.5 % (16-45); MEAN CELL VOLUME 67.1 fl (81-97); MEAN CORPUSCULAR HEMOGLOBIN 19.6 pg (27-33); MEAN CORPUSCULAR HGB CONC 29.3 g/dl (32-36); MEAN PLATELET VOLUME 9.3 fl (7.4-10.4); MONO % 9.2 % (0-9); PLATELET COUNT 350 K/uL (130-400); RED BLOOD COUNT 5.04 M/uL (4.40-5.70); RED CELL DISTRIBUTION WIDTH 20.1 % (11.5-14.5); WHITE BLOOD COUNT W/O DIFF 5.9 K/uL (4.2-12.2)
[2018-01-01 13:38] LABS: BILIRUBIN,TOTAL < 0.20 mg/dL (0.2-1.0); BLOOD UREA NITROGEN 23 mg/dL (8-23); EST GLOMERULAR FILTRATION RATE > 60 mL/min
[2018-01-01 13:39] LABS: TOTAL PROTEIN 6.9 g/dL (6.6-8.7)
[2018-01-01 13:41] LABS: GLUCOSE,RANDOM 237 mg/dL (74-109); INR 0.9; PARTIAL THROMBOPLASTIN TIME 28.9 SECONDS (24.5-39.1); PROTHROMBIN TIME (PATIENT) 10.1 SECONDS (9.5-12.1)
[2018-01-01 13:44] LABS: ALB/GLOB RATIO 1.6 (1.1-1.8); ALBUMIN 4.2 g/dL (4.0-5.0); ALKALINE PHOSPHATASE 71 U/L (40-129); ALT/SGPT 18 U/L (<41); AST/SGOT 23 U/L (10.0-50.0)
[2018-01-01] MEDS ORDERED: MORPHINE SULFATE 10 MG/ML VIAL IVP PRN (15:54)
[2018-01-01] MEDS: PANTOPRAZOLE SODIUM 40 MG TABLET PO SCH (17:24)
[2018-01-01] MEDS ORDERED: HUMULIN N KWIKPEN 100 UNIT/ML SQ SCH (22:00)
[2018-01-01] MEDS: APIXABAN 5MG TABLET PO SCH (22:10)
[2018-01-02] MEDS: PANTOPRAZOLE SODIUM 40 MG TABLET PO SCH (06:17)
--- NOTE | 2018-01-02 07:14 | RADIOLOGY REPORT ---
EXAM: PORTABLE CHEST HISTORY: DIFFICULTY IN BREATHING. TECHNIQUE: AP upright view of the chest was performed. FINDINGS: The heart size is normal. Postop surgical change. No infiltrate or pleural effusion. IMPRESSION: NO ACUTE PULMONARY DISEASE PROCESS. JOB NUMBER: [id number] MTDD
[2018-01-02] MEDS: APIXABAN 5MG TABLET PO SCH (09:36)
[2018-01-02] MEDS ORDERED: HUMULIN N KWIKPEN 100 UNIT/ML SQ SCH (10:00)
[2018-01-02] MEDS ORDERED: ASPIRIN 325 MG TAB ENTERIC-COATED PO SCH (10:00)
--- NOTE | 2018-01-02 10:10 | History & Physical ---
History of Present Illness - Date of Service Date of Service for History & Physical: 01/02/18 - History of Present Illness Admitting Diagnosis: Chest Pain History of Present Illness: 82 year old male presents to ED with complaints of chest pain that began around 10am while he was mowing the lawn. Patient has a known history of CAD with prior TX. Patient described the pain as a heavy feeling that went across his chest with intermittent nausea. Patient denied shortness of breath or radiation of pain. In August of this year patient had a small PE, which had resolved on repeat CTA of the chest. He was most recently seen on November 20 of this year for chest pain. At that time he was transferred to [facility] for a complete chest pain work -up, which included a normal stress perfusion test (Dr. Peng). Other medical history includes DM, bladder cancer with urostomy placement. ED Course: EKG: #1-NSR, rate 94, no ST depression or acute changes. No change from prior EKG on 11/20/17 #2- NSR, rate 83, no ST changes from prior EKG Troponin 0.017 (0.023 11/20/17) [facility] records were requested and obtained. Admission to Dr Rothman. 11/22/17. Normal ECHO. LHC was performed. Balloon angioplasty was performed in the mid LAD stent restenosis. The case was discussed with Dr Oconnor who is very familiar with patient. He recommends serial enzymes to monitor for significant changes. He does not recommend transfer to [facility] unless changes in the Troponin, given no indication for immediate invasive testing. [facility] 01/02/18: Patient A&O x 4. Resting comfortably in bed. Denies any further episodes of chest pain since admission. No cardiac events seen on rn cardiac rehab. Serial troponins are as follows: 0.017, 0.013, <0.010 Travel Screening - Travel/Exposure Within Last 30 Days Have you traveled within the last 30 days?: No - Travel/Exposure Within Last Year Have you traveled outside the [place] in the last year?: No - Additonal Travel Details Have you been exposed to anyone with a communicable illness?: No - Travel Symptoms Symptom Screening: Weakness Review of Systems Constitutional: Reports: As per HPI. Denies: Chills, Fever, Malaise, Weakness Eyes: Denies: Eye discharge ENT: Denies: Congestion, Throat pain Respiratory: Denies: Cough, Dyspnea, Hemoptysis, Stridor, Wheezes Cardiovascular: Reports: As per HPI, Chest pain. Denies: Dyspnea on exertion, Edema, Palpitations, Syncope Endocrine: Denies: Fatigue, Polydipsia, Polyuria Gastrointestinal: Reports: As per HPI, Nausea. Denies: Abdominal pain, Constipation, Vomiting Genitourinary: Reports: As per HPI, Other (urostomy). Denies: Dysuria, Frequency, Hematuria Musculoskeletal: Denies: Arthralgia, Back pain, Joint swelling, Myalgia Skin: Reports: As per HPI. Denies: Bruising, Change in color, Rash Neurological: Reports: As per HPI. Denies: Confusion, Headache, Numbness Psychiatric: Reports: As per HPI. Denies: Anxiety Hematological/Lymphatic: Denies: Blood Clots, Easy bleeding, Easy bruising, Swollen glands Past Medical History - SOCIAL HISTORY Smoking Status: Never smoker Drug Use: None - RESPIRATORY Hx Respiratory Disorders: No - CARDIOVASCULAR Hx Cardio Disorders: Yes Hx Cardiac Cath: Yes (8 stents, triple bypass) Hx Heart Attack: Yes - NEURO Hx Neuro Disorders: Yes Hx Dizziness: Yes - GI Hx GI Disorders: Yes Hx Reflux: Yes Comment:: hx of dysphagia - Hx Genitourinary Disorders: No - ENDOCRINE Hx Endocrine Disorders: Yes - MUSCULOSKELETAL Hx Musculoskeletal Disorders: Yes Hx Back Injury: Yes - PSYCH Hx Psych Problems: No - HEMATOLOGY/ONCOLOGY Hx Hematology/Oncology Disorders: Yes Hx Cancer: Yes (bladder) Hx Chemotherapy: No Hx Radiation Therapy: No Family Medical History Hx Cancer: Brother/Sister Hx Dementia: Father, Brother/Sister Hx Heart Disease: Mother, Brother/Sister H&P Meds/Allergies - Allergies Allergies: Allergies Allergy/AdvReac Type Severity Reaction Status Date / Time levofloxacin [From LEVAQUIN] Allergy Unknown HIVES Verified 01/01/18 13:23 - Home Medications Home Medications Medication Instructions Recorded Confirmed Last Taken Insulin NPH Human Isophane 25 unit SQ QHS 01/01/18 01/01/18 12/31/17 [Humulin N] Insulin NPH Human Isophane 35 unit SQ QAM 01/01/18 01/01/18 01/01/18 [Humulin N] - Active Medications Active Medications: Current Medications Apixaban (Eliquis) 5 mg PO BID [facility] Last Admin: 01/02/18 09:36 Dose: 5 mg Aspirin (Ecotrin (Ec)) 325 mg PO DAILY [facility] Last Admin: 01/02/18 09:36 Dose: 325 mg Insulin Human NPH (Humulin N Kwikpen) 35 unit SQ DAILY [facility] Last Admin: 01/02/18 09:35 Dose: 35 unit Insulin Human NPH (Humulin N Kwikpen) 25 unit SQ QHS [facility] Last Admin: 01/01/18 22:11 Dose: 25 unit Morphine Sulfate (Morphine Sulfate) 2 mg IVP Q4H PRN PRN Reason: CHEST PAIN Last Admin: 01/01/18 17:24 Dose: 2 mg Pantoprazole Sodium (Protonix) 40 mg PO BIDAC [facility] Last Admin: 01/02/18 06:17 Dose: 40 mg Physical Exam - Vital Signs Vital Signs: Vital Signs - Last 24 Hrs Temp Pulse Pulse Resp BP BP Pulse Ox 01/02/18 06:05 97 01/02/18 06:00 97.6 F 70 16 157/61 99 01/01/18 22:00 97.7 F 77 18 120/53 100 01/01/18 21:00 16 01/01/18 18:25 66 16 98 01/01/18 18:00 97.3 F L 77 18 159/82 97 01/01/18 16:30 60 18 01/01/18 16:00 97.7 F 69 18 121/74 97 01/01/18 15:20 77 16 128/79 97 01/01/18 14:42 97.8 F 81 17 137/88 96 01/01/18 14:22 83 14 137/69 93 L 01/01/18 14:18 84 16 126/67 96 01/01/18 13:52 91 H 17 133/63 93 L 01/01/18 13:48 92 H 15 107/71 95 01/01/18 13:44 103 H 17 128/69 94 L 01/01/18 13:39 93 H 21 170/74 95 01/01/18 13:17 98.7 F 94 H 18 164/71 95 - General General Appearance: Alert, Oriented x3, Cooperative, No acute distress Limitations: No limitations - Head Head exam: Normal inspection - Eye Eye exam: Normal appearance, PERRL. negative: Conjunctival injection, Scleral icterus - ENT ENT exam: Normal exam, Mucous membranes moist Ear exam: Normal external inspection Nasal Exam: Normal inspection Mouth exam: Normal external inspection - Neck Neck exam: Normal inspection - Respiratory Respiratory exam: Normal lung sounds bilaterally. negative: Accessory muscle use, Chest wall tenderness, Decreased breath sounds, Respiratory distress, Rhonchi, Stridor, Wheezes - Cardiovascular Cardiovascular Exam: Regular rate, Normal rhythm, Normal heart sounds Peripheral Pulses: 2+: Radial (R), Radial (L), Dorsalis Pedis (R), Dorsalis Pedis (L) - GI/Abdominal GI/Abdominal exam: Soft. negative: Tenderness - Rectal Rectal exam: Deferred - exam: Deferred - Extremities Extremities exam: Normal inspection. negative: Pedal edema - Back Back exam: Denies: CVA tenderness (R), CVA tenderness (L) - Neurological Neurological exam: Alert, Normal gait, Oriented X3 - Psychiatric Psychiatric exam: Normal affect, Normal mood Results - Labs Result Diagrams: 01/01/18 13:20 01/01/18 13:20 Labs Last 24 Hours: Laboratory Results - last 24 hr 01/01/18 01/01/18 01/01/18 13:20 13:20 13:20 WBC 5.9 RBC 5.04 Hgb 9.9 L Hct 33.8 L MCV 67.1 L MCH 19.6 L MCHC 29.3 L RDW 20.1 H Plt Count 350 MPV 9.3 Gran % 59.4 Lymphocytes % 27.5 Monocytes % 9.2 H Eosinophils % 3.2 Basophils % 0.7 PT 10.1 INR 0.9 APTT 28.9 Sodium 144 Potassium 4.4 Chloride 102 Carbon Dioxide 27.0 Anion Gap 15.0 BUN 23 Creatinine 1.0 Estimated GFR > 60 POC Glucose Random Glucose 237 H Calcium 8.9 Total Bilirubin < 0.20 L AST 23 ALT 18 Alkaline Phosphatase 71 Troponin T 0.017 H Total Protein 6.9 Albumin 4.2 Globulin 2.7 Albumin/Globulin Ratio 1.6 01/01/18 01/01/18 01/01/18 17:00 21:35 22:24 WBC RBC Hgb Hct MCV MCH MCHC RDW Plt Count MPV Gran % Lymphocytes % Monocytes % Eosinophils % Basophils % PT INR APTT Sodium Potassium Chloride Carbon Dioxide Anion Gap BUN Creatinine Estimated GFR POC Glucose Cancelled 188 H Random Glucose Calcium Total Bilirubin AST ALT Alkaline Phosphatase Troponin T 0.013 H Total Protein Albumin Globulin Albumin/Globulin Ratio 01/02/18 01/02/18 06:43 08:00 WBC RBC Hgb Hct MCV MCH MCHC RDW Plt Count MPV Gran % Lymphocytes % Monocytes % Eosinophils % Basophils % PT INR APTT Sodium Potassium Chloride Carbon Dioxide Anion Gap BUN Creatinine Estimated GFR POC Glucose 218 H Random Glucose Calcium Total Bilirubin AST ALT Alkaline Phosphatase Troponin T < 0.010 Total Protein Albumin Globulin Albumin/Globulin Ratio VTE H&P Assessment - Risk for VTE Risk for VTE: Yes Risk Level: Moderate Risk Assessment Date: 01/02/18 Risk Assessment Time: 09:00 VTE Orders Placed or Will Be Placed: Yes Plan - Detailed Diagnosis and Plan (1) Chest pain Current Visit: Yes Status: Acute Qualifiers: Chest pain type: unspecified Qualified Code(s): R07.9 - Chest pain, unspecified Base Code: R07.9 - CHEST PAIN, UNSPECIFIED Comment: 01/02/18: Patient presented to ED with acute onset chest pain/heaviness. Initial EKG was unchanged from previous, troponin indeterminate at 0.017. Patient had recent cardiac workup with cath 11/22/17. Spoke with Dr. Oconnor who would like patient admitted for serial enzymes and then dc if normal. -Troponin trending down, 0.017, 0.013, <0.010 -awake overnight monitor -Repeat EKG -Cardiac diet (2) DVT prophylaxis Current Visit: No Status: Acute Base Code: [id number] - Priority: High Comment: 01/02/18: moderate risk due to age, decreased activity, hospitalization -pt started on Lovenox 40mg SQ QD for DVT prophylaxis (3) Full code status Current Visit: No Status: Acute Base Code: Z78.9 - OTHER SPECIFIED HEALTH STATUS Comment: 01/02/18- patient will remain full code status during this hospitalization
--- NOTE | 2018-01-02 10:56 | Discharge Summary ---
Providers Discharge Summary Date: 01/02/18 Date of admission: 01/01/18 15:34 Expected Date of Discharge: 01/02/18 Attending physician: CORINA KHAN Primary care physician: Queenie Watson N.P. Physical Exam - Vital Signs Vital Signs: Vital Signs - Last 24 Hrs Temp Pulse Pulse Resp BP BP Pulse Ox 01/02/18 09:00 65 16 01/02/18 06:05 97 01/02/18 06:00 97.6 F 70 16 157/61 99 01/01/18 22:00 97.7 F 77 18 120/53 100 01/01/18 21:00 16 01/01/18 18:25 66 16 98 01/01/18 18:00 97.3 F L 77 18 159/82 97 01/01/18 16:30 60 18 01/01/18 16:00 97.7 F 69 18 121/74 97 01/01/18 15:20 77 16 128/79 97 01/01/18 14:42 97.8 F 81 17 137/88 96 01/01/18 14:22 83 14 137/69 93 L 01/01/18 14:18 84 16 126/67 96 01/01/18 13:52 91 H 17 133/63 93 L 01/01/18 13:48 92 H 15 107/71 95 01/01/18 13:44 103 H 17 128/69 94 L 01/01/18 13:39 93 H 21 170/74 95 01/01/18 13:17 98.7 F 94 H 18 164/71 95 - General General Appearance: Alert, Oriented x3, Cooperative, No acute distress Limitations: No limitations - Head Head exam: Normal inspection - Eye Eye exam: Normal appearance, PERRL. negative: Conjunctival injection, Scleral icterus - ENT ENT exam: Normal exam, Mucous membranes moist Ear exam: Normal external inspection Nasal Exam: Normal inspection Mouth exam: Normal external inspection - Neck Neck exam: Normal inspection - Respiratory Respiratory exam: Normal lung sounds bilaterally. negative: Accessory muscle use, Chest wall tenderness, Decreased breath sounds, Respiratory distress, Rhonchi, Stridor, Wheezes - Cardiovascular Cardiovascular Exam: Regular rate, Normal rhythm, Normal heart sounds Peripheral Pulses: 2+: Radial (R), Radial (L), Dorsalis Pedis (R), Dorsalis Pedis (L) - GI/Abdominal GI/Abdominal exam: Soft, Other (urostomy). negative: Tenderness - Rectal Rectal exam: Deferred - exam: Deferred - Extremities Extremities exam: Normal inspection. negative: Pedal edema - Back Back exam: Denies: CVA tenderness (R), CVA tenderness (L) - Neurological Neurological exam: Alert, Normal gait, Oriented X3 - Psychiatric Psychiatric exam: Normal affect, Normal mood Hospitalization - Hospitalization Admission Diagnosis: Chest Pain - Problem List/Discharge Diagnosis (1) Chest pain Current Visit: Yes Status: Acute Discharge Diagnosis: Chest pain type: unspecified Qualified Code(s): R07.9 - Chest pain, unspecified Base Code: R07.9 - CHEST PAIN, UNSPECIFIED Comment: 01/02/18: Patient presented to ED with acute onset chest pain/heaviness. Initial EKG was unchanged from previous, troponin indeterminate at 0.017. Patient had recent cardiac workup with cath 11/22/17. Spoke with Dr. Oconnor who would like patient admitted for serial enzymes and then dc if normal. 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 Patient has a known history of CAD with prior AL. Patient described the pain as a heavy feeling that went across his chest with intermittent nausea. Patient denied shortness of breath or radiation of pain. In August of this year patient had a small PE, which had resolved on repeat CTA of the chest. He was most recently seen on November 20 of this year for chest pain. At that time he was transferred to [facility] for a complete chest pain work -up, which included a normal stress perfusion test (Dr. Peng). Other medical history includes DM, bladder cancer with urostomy placement. ED Course: EKG: #1-NSR, rate 94, no ST depression or acute changes. No change from prior EKG on 11/20/17 #2- NSR, rate 83, no ST changes from prior EKG Troponin 0.017 (0.023 11/20/17) [facility] records were requested and obtained. Admission to Dr Rothman. 11/22/17. Normal ECHO. LHC was performed. Balloon angioplasty was performed in the mid LAD stent restenosis. The case was discussed with Dr Oconnor who is very familiar with patient. He recommends serial enzymes to monitor for significant changes. He does not recommend transfer to [facility] unless changes in the Troponin, given no indication for immediate invasive testing. PCP: [facility] 01/02/18: Patient A&O x 4. Resting comfortably in bed. Denies any further episodes of chest pain since admission. 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 Serial troponins are as follows: 0.017, 0.013, <0.010 Update: patient remains pain-free. Updated Dr. Oconnor on patient's condition and lab results, plan to follow-up outpatient. Patient to follow-up with PCP and cardiology in 2 weeks. Procedures: Imaging and X-Rays 01/01/18 13:16 CHEST 1 VIEW [RAD] Stat Cardiology Procedures 01/01/18 13:15 EKG NOW 01/01/18 13:16 Viscose Department Worker NOW 01/01/18 14:19 EKG ONCE 01/01/18 15:54 Viscose Department Worker .Continuous EKG QDX2@0600 Abnormal Labs: Abnormal Lab Results 01/01/18 01/01/18 01/01/18 Range/Units 13:20 13:20 21:35 Hgb 9.9 L (14.0-18.0) gm/dl Hct 33.8 L (42.0-52.0) % MCV 67.1 L (81-97) fl MCH 19.6 L (27-33) pg MCHC 29.3 L (32-36) g/dl RDW 20.1 H (11.5-14.5) % Monocytes % 9.2 H (0-9) % POC Glucose (70-110) mg/dL Random Glucose 237 H (74-109) mg/dL Total Bilirubin < 0.20 L (0.2-1.0) mg/dL Troponin T 0.017 H 0.013 H (0-0.010) ng/mL 01/01/18 01/02/18 Range/Units 22:24 08:00 Hgb (14.0-18.0) gm/dl Hct (42.0-52.0) % MCV (81-97) fl MCH (27-33) pg MCHC (32-36) g/dl RDW (11.5-14.5) % Monocytes % (0-9) % POC Glucose 188 H 218 H (70-110) mg/dL Random Glucose (74-109) mg/dL Total Bilirubin (0.2-1.0) mg/dL Troponin T (0-0.010) ng/mL Condition at Discharge: (1) Good VTE Discharge VTE Reason For No Overlap Therapy: Not Indicated (will continue Eliquis 5mg BID) Discharge Medications - Discharge Medications Home Medications: Ambulatory Orders Dexlansoprazole [Dexilant] 60 mg PO BIDAC 05/21/14 [Last Taken 01/01/18] Nitroglycerin [Nitrostat] 0.4 mg SL ASDIR 03/17/16 [Last Taken 01/01/18] Insulin NPH Human Isophane [Humulin N] 25 unit SQ QHS 01/01/18 [Last Taken 12/31] Insulin NPH Human Isophane [Humulin N] 35 unit SQ QAM 01/01/18 [Last Taken 01/01] Discharge Plan - Discharge Instructions Activity at Discharge: Increase Activity as Tolerated Diet at Discharge: Low Fat, Low Cholesterol Additional Instructions: Follow up with PCP as scheduled. Follow-up with Cardiology in 2-4 weeks Return to ER for worsening chest pain, shortness of breath, or any further concerning symptoms. Quality Measures - Quality Measures Quality Measures: Advance Directives, Documentation of Current Medications in Medical Record, Elder Maltreatment Screen and Follow-Up Plan, Screening for High Blood Pressure and F/U Documented - Current Medications Quality Measure: Measure #130: Documentation of Current Medications Documentation of Current Medications: <Current Medications Documented/Reviewed> [G8427] - Blood Pressure Screening Quality Measure: Screening for High Blood Pressure and Follow-Up Documented Does Patient Have Any of the Following: Active Dx of HTN Blood Pressure Classification: Hypertensive Reading Systolic Measurement: 164 Diastolic Measurement: 71 Screening for High Blood Pressure: Patient Exclusion, Hx of HTN [G9744] - Advance Directives Quality Measure: Measure #47: Care Plan Advance Directives Established: No Advance Directives Information Provided To Patient: No Advance Directives on File: No Living Will: No Power of Tank Stave Assembler: No Advance Care Planning: Not Discussed or Documented [[id number]] - Elder Abuse Suspicion Index Screening: Elder Abuse Suspicion Index Screening Rely on people for bathing, dressing, shopping, banking, etc: No Prevented from getting food, clothes, medication, etc: No Made to feel shamed or threatened by someone: No Forced to sign papers or use money against will: No Feel afraid, touched in ways not wanted or hurt physically: No Poor eye contact, withdrawn, malnourished, cuts or bruises: No Screening Result: Negative result EASI Reference Information: Yoandy ACEVES, Nicole C, Rei D, Fabrizio Moore.Development and validation of a tool to assist physicians identification of elder abuse: The Elder Abuse Suspicion Index (EASI ). Journal of Elder Abuse and Neglect, 2008; 20 (3): 276-300. - Elder Maltreatment Screen Quality Measures: Elder Maltreatment Screen and Follow-Up Plan Elder Maltreatment Screen: <Negative, No Follow-Up Plan Required> [G8734]
== END 2018-01-02 11:50 | disposition home or self-care (01) ==
LOC: ER 13:06 → MEDSURG 15:34
PROVIDERS: ADMIT Internal Medicine; ATTEND Internal Medicine
DX: R07.9 Chest pain, unspecified (principal); I25.2 Old myocardial infarction; I25.810 Atherosclerosis of coronary artery bypass graft(s) without angina pectoris; Z95.5 Presence of coronary angioplasty implant and graft; Z95.1 Presence of aortocoronary bypass graft; E11.9 Type 2 diabetes mellitus without complications; Z79.4 Long term (current) use of insulin; Z85.51 Personal history of malignant neoplasm of bladder
CPT/HCPCS: 99285 ×2; 96376; 96374; 85025; 85730; 85610; 80053; 36416 ×2; 82948 ×2; 84484 ×2; 71045; 94760 ×2; 93005 ×2; 93010; G0378 ×2; J1815; J3490 ×2; J2270; 96375; 99220

== ENCOUNTER 2018-01-25 06:38 | Emergency (ER) | payer MEDICARE ==
[2018-01-25] MEDS ORDERED: ASPIRIN 81 MG CHEWABLE TABLET PO ONE (06:51)
[2018-01-25 06:59] LABS: BASO % 0.6 % (0-6); EOS % 2.9 % (0-6); GRAN % 63.3 % (47-80); HEMATOCRIT 34.9 % (42.0-52.0); HEMOGLOBIN 10.1 gm/dl (14.0-18.0); LYMPH % 24.2 % (16-45); MEAN CELL VOLUME 67.2 fl (81-97); MEAN CORPUSCULAR HGB CONC 28.9 g/dl (32-36); MEAN PLATELET VOLUME 9.5 fl (7.4-10.4); PLATELET COUNT 362 K/uL (130-400); RED BLOOD COUNT 5.19 M/uL (4.40-5.70); WHITE BLOOD COUNT W/O DIFF 6.5 K/uL (4.2-12.2)
[2018-01-25] MEDS: NITROGLYCERIN 0.4MG SL TABLET #25 BTL SL PRN ×2 (07:02→07:08)
[2018-01-25 07:13] LABS: BLOOD UREA NITROGEN 16 mg/dL (8-23); CREATININE 1.1 mg/dL (0.7-1.2); EST GLOMERULAR FILTRATION RATE > 60 mL/min
[2018-01-25 07:15] LABS: GLUCOSE,RANDOM 217 mg/dL (74-109)
--- NOTE | 2018-01-25 07:19 | Emergency Department Record ---
History of Present Illness - General Chief Complaint: Chest Pain Stated Complaint: CHEST PAIN Time Seen by Provider: 01/25/18 06:50 Source: Patient, RN notes reviewed Mode of Arrival: Ambulatory - History of Present Illness Initial Comments: chest pain and heavy in nature and left arm pain and some sweating last night and he has had a long cardiac history last broker in charge seen Dr. Rothman at [facility]. Patient has 8 cardiac stents and previous [place]. Onset/Timin -: Days(s) Onset: During rest Pain Location: Substernal Pain Radiation: LUE, Neck Severity scale (1-10): 9 Quality: Heaviness Consistency: Constant Improves With: Nothing Anginal Symptoms: Nausea Treatments Prior to Arrival: None - Related Data Home Medications Medication Instructions Recorded Confirmed Last Taken Insulin NPH Human Isophane 35 units SQ BID 01/25/18 01/25/18 Unknown [Humulin N Kwikpen] Allergies Allergy/AdvReac Type Severity Reaction Status Date / Time levofloxacin [From LEVAQUIN] Allergy Unknown HIVES Verified 01/25/18 06:40 Travel Screening - Travel/Exposure Within Last 30 Days Have you traveled within the last 30 days?: No - Travel Symptoms Symptom Screening: None Review of Systems Reviewed: No additional complaints except as noted below Constitutional: Reports: As per HPI. Denies: Chills, Fever, Malaise, Night sweats, Weakness, Weight change Eyes: Reports: As per HPI. Denies: Eye discharge, Eye pain, Photophobia, Vision change ENT: Reports: As per HPI. Denies: Congestion, Dental pain, Ear pain, Epistaxis , Hearing loss, Throat pain Respiratory: Reports: As per HPI. Denies: Cough, Dyspnea, Hemoptysis, Stridor, Wheezes Cardiovascular: Reports: As per HPI, Chest pain. Denies: Arrhythmia, Dyspnea on exertion, Edema, Murmurs, Orthopnea, Palpitations, Paroxysmal nocturnal dyspnea, Rheumatic Fever, Syncope Endocrine: Reports: As per HPI. Denies: Fatigue, Heat or cold intolerance, Polydipsia, Polyuria Gastrointestinal: Reports: As per HPI. Denies: Abdominal pain, Constipation, Diarrhea, Hematemesis, Hematochezia, Melena, Nausea, Vomiting Genitourinary: Reports: As per HPI. Denies: Dysuria, Frequency, Hematuria, Incontinence, Retention, Testicular pain, Testicular mass, Urgency Musculoskeletal: Reports: As per HPI. Denies: Arthralgia, Back pain, Gout, Joint swelling, Myalgia, Neck pain Skin: Reports: As per HPI. Denies: Bruising, Change in color, Change in hair/ nails, Lesions, Pruritus, Rash Neurological: Reports: As per HPI. Denies: Abnormal gait, Confusion, Headache, Numbness, Paresthesias, Seizure, Tingling, Tremors, Vertigo, Weakness Psychiatric: Reports: As per HPI. Denies: Anxiety, Auditory hallucinations, Depression, Homicidal thoughts, Suicidal thoughts, Visual hallucinations Hematological/Lymphatic: Reports: As per HPI. Denies: Anemia, Blood Clots, Easy bleeding, Easy bruising, Swollen glands Past Medical History - SOCIAL HISTORY Smoking Status: Never smoker - RESPIRATORY Hx Respiratory Disorders: No - CARDIOVASCULAR Hx Cardio Disorders: Yes Hx Cardiac Cath: Yes (8 stents, triple bypass) Hx Heart Attack: Yes - NEURO Hx Neuro Disorders: Yes Hx Dizziness: Yes - GI Hx GI Disorders: Yes Hx Reflux: Yes Comment:: hx of dysphagia - Hx Genitourinary Disorders: No - ENDOCRINE Hx Endocrine Disorders: Yes - MUSCULOSKELETAL Hx Musculoskeletal Disorders: Yes Hx Back Injury: Yes - PSYCH Hx Psych Problems: No - HEMATOLOGY/ONCOLOGY Hx Hematology/Oncology Disorders: Yes Hx Cancer: Yes (bladder) Hx Chemotherapy: No Hx Radiation Therapy: No Family Medical History Any Significant Family History?: Yes Hx Cancer: Brother/Sister Hx Dementia: Father, Brother/Sister Hx Heart Disease: Mother, Brother/Sister Physical Exam - General General Appearance: Alert, Oriented x3, Cooperative, Mild distress - Head Head exam: Normal inspection - Eye Eye exam: Normal appearance, PERRL Pupils: Normal accommodation - ENT ENT exam: Normal exam, Mucous membranes moist, Normal external ear exam, Normal orophraynx, TM's normal bilaterally Ear exam: Normal external inspection. negative: External canal tenderness Nasal Exam: Normal inspection. negative: Discharge, Sinus tenderness Mouth exam: Normal external inspection, Tongue normal Teeth exam: Normal inspection. negative: Dental caries Throat exam: Normal inspection. negative: Tonsillar erythema, Tonsillar exudate - Neck Neck exam: Normal inspection, Full ROM. negative: Tenderness - Respiratory Respiratory exam: Normal lung sounds bilaterally. negative: Respiratory distress - Cardiovascular Cardiovascular Exam: Regular rate, Normal rhythm, Normal heart sounds - GI/Abdominal GI/Abdominal exam: Soft, Normal bowel sounds. negative: Tenderness - Rectal Rectal exam: Deferred - exam: Deferred - Extremities Extremities exam: Normal inspection, Full ROM, Normal capillary refill. negative: Tenderness - Back Back exam: Reports: Normal inspection, Full ROM. Denies: Muscle spasm, Rash noted, Tenderness - Neurological Neurological exam: Alert, Normal gait, Oriented X3, Reflexes normal - Psychiatric Psychiatric exam: Normal affect, Normal mood - Skin Skin exam: Dry, Intact, Normal color, Warm Course Vital Signs 01/25/18 01/25/18 01/25/18 06:41 07:03 07:08 Temperature 97.9 F Pulse Rate 86 90 Pulse Rate [ 80 Implementation Specialist ] Respiratory 12 18 16 Rate Blood Pressure 191/94 Blood Pressure 156/72 [Left Arm] Pulse Ox 99 97 98 01/25/18 07:09 Temperature Pulse Rate Pulse Rate [ 91 H Implementation Specialist ] Respiratory 16 Rate Blood Pressure Blood Pressure 109/56 [Left Arm] Pulse Ox 98 - Reevaluation(s) Reevaluation #1: Discussed case with Dr. Oconnor and will transfer to [facility]. 01/25/18 09:10 Medical Decision Making - Lab Data Result diagrams: 01/25/18 06:45 01/25/18 06:45 Disposition Clinical Impression: Chest pain at rest, Elevated troponin, NSTEMI (non-ST elevated myocardial infarction) CAD (coronary artery disease) Qualifiers: Coronary Disease-Associated Artery/Lesion type: [place] artery [place] vs. transplanted heart: [place] heart Associated angina: with unstable angina Qualified Code(s): I25.110 - Atherosclerotic heart disease of [place] coronary artery with unstable angina pectoris Disposition: Acute Care Hospital Transfer Condition: (2) Stable Forms: Patient Portal Access Time of Disposition: 09:15 Quality - Quality Measures Quality Measures: N/A - Blood Pressure Screening Does Patient Have Any of the Following: No, Active Dx of HTN Blood Pressure Classification: Hypertensive Reading Systolic Measurement: 191 Diastolic Measurement: 94 Screening for High Blood Pressure: Patient Exclusion, Hx of HTN [G9744]
[2018-01-25 07:20] LABS: CKMB 12.2 ng/mL (<6.73); MEAN CORPUSCULAR HEMOGLOBIN 19.4 pg (27-33)
[2018-01-25] MEDS ORDERED: MORPHINE SULFATE 10 MG/ML VIAL IVP ONE (07:26)
[2018-01-25 07:28] LABS: CREATINE PHOSPHOKINASE 281 U/L (39-308)
[2018-01-25] MEDS ORDERED: 0.9 % SODIUM CHLORIDE 500ML 500 ML IV SCH (07:30)
[2018-01-25 08:26] LABS: INR 0.9; PARTIAL THROMBOPLASTIN TIME 27.8 SECONDS (24.5-39.1); PROTHROMBIN TIME (PATIENT) 10.1 SECONDS (9.5-12.1)
[2018-01-25] MEDS ORDERED: NITROGLYCERIN/D5W 50 MG/250 ML ML IV SCH (08:30)
[2018-01-25] MEDS ORDERED: LORAZEPAM 2 MG/ML VIAL IV ONE (09:00)
--- NOTE | 2018-01-26 09:22 | CT ANGIOGRAM REPORT ---
EXAM: CT ANGIOGRAM OF THE CHEST WITH CONTRAST HISTORY: SHORTNESS OF BREATH AND CHEST PAIN. TECHNIQUE: Helical CT angiogram of the thorax was obtained after the administration of 95 ml intravenous Omnipaque contrast. Images post processed with multiplanar maximum intensity projection images. Comparison: CT angiogram of the thorax 11/10/17. FINDINGS: No filling defects are identified in the pulmonary arteries. The aorta has normal caliber, no dissection. Coronary artery stents and calcifications are noted. The left ventricle appears hypertrophied with a small area of subendocardial hypodensity in the left ventricle apex, presumably from prior ischemia. No pericardial effusion. There are postoperative changes of median sternotomy and coronary artery bypass graft surgery. The lung parenchyma shows mild emphysematous change and peribronchial thickening. There is some mucous plugging in the distal airways of the lower lobes. Limited images of the upper abdomen again show cortical scarring in the upper pole of the right kidney. Mildly dilated left renal collecting system again noted. Bony structures again show degenerative changes of the spine ad healed median sternotomy. Anterior cervical fusion hardware noted. IMPRESSION: 1. NO EVIDENCE OF PULMONARY EMBOLISM. THERE ARE PERIBRONCHIAL INFLAMMATORY CHANGES AND MUCOUS PLUGGING IN THE DISTAL AIRWAYS OF THE LOWER LOBES. 2. NO EVIDENCE OF AORTIC DISSECTION. JOB NUMBER: [id number] [facility]
== END 2018-01-25 10:40 | disposition short-term general hospital (02) ==
LOC: ER 06:38
DX: I25.10 Atherosclerotic heart disease of native coronary artery without angina pectoris (principal); I10 Essential (primary) hypertension; Z95.1 Presence of aortocoronary bypass graft
CPT/HCPCS: 71275; 80048; 82550; 82553; 83880; 84484; 85025; 85379; 85610; 85730; 93005; 93010; 96365; 96366; 96375; 99285; J2270; J7040

== ENCOUNTER 2018-01-29 07:25 | Day surgery (SDC) | payer MEDICARE ==
[2018-01-29] MEDS ORDERED: FENTANYL PF 100MCG/2ML VIAL IV ONE (07:26)
[2018-01-29] MEDS ORDERED: LIDOCAINE 2% MDV (20MG/ML) 20ML VIAL IV ONE (07:26)
[2018-01-29] MEDS ORDERED: PROPOFOL 10 MG/ML VIAL IV ONE (07:26)
--- NOTE | 2018-01-30 12:30 | Operative Note ---
DATE OF SURGERY: 01/29/2018 OPERATION: ESOPHAGOGASTRODUODENOSCOPY with CRE balloon dilation. PREOPERATIVE DIAGNOSIS: Dysphagia? POSTOPERATIVE DIAGNOSES: 1. Distal esophageal diverticula. 2. Status post pyloroplasty. PROCEDURE: After informed consent was obtained from the patient, he was placed in the left lateral decubitus position in the endoscopy suite, sedated and monitored by the department of anesthesia. He had been off his Eliquis for approximately 6-7 days. Once sedated, a well-lubricated XAZ508 gastroscope was placed in the posterior oropharynx and under direct visualization passed to the proximal esophagus. The endoscope was advanced through the proximal, mid, and distal esophagus. In the distal esophagus there were 2 esophageal diverticula. The GE junction appeared unremarkable. The gastric body and antrum were unremarkable. The pylorus was widely patent consistent with prior history of pyloroplasty. Duodenal bulb and sweep were unremarkable. J-turn views of the proximal stomach were unrevealing. At this point, the endoscope was straightened and CRE balloon dilation was performed with a 15, 16.5, and subsequently 18 mm balloon. At the 18 mm inflation, there was noted to be no waste. In fact, there was no waste at the 15, 16.5, or 18 mm diameters. The balloon was held for approximately 15-20 seconds and deflated. There was no evidence of heme, which is not surprising based on the apparent space between the margin of the balloon and the GE junction. The endoscope was removed from the patient. RECOMMENDATIONS: At this point, it is unclear to me whether the patient is suffering from dysphagia complaints or whether there is a gastric emptying issue. It would not be surprising if he could have some dysphagia due to his apparent esophageal motility issues which were visualized on a previous esophagram. It is unclear as well whether some food may be collecting in his esophageal diverticula. In addition, he does complain of belching and regurgitation and, in fact, some of the regurgitation may be related to poor gastric emptying. At this point, I would recommend he undergo a gastric emptying study but little else seems to be necessary at this point. We will await results of the emptying study. As always, thank you for allowing me to participate in the healthcare of your patients. CC: MARYLOU Arellano
== END 2018-01-29 08:45 | disposition home or self-care (01) ==
LOC: HOP 07:25
PROVIDERS: ATTEND Internal Medicine Gastroenterology
DX: Z98.890 Other specified postprocedural states (principal); Q39.6 Congenital diverticulum of esophagus; E11.9 Type 2 diabetes mellitus without complications; Z79.4 Long term (current) use of insulin; I25.10 Atherosclerotic heart disease of native coronary artery without angina pectoris; Z86.711 Personal history of pulmonary embolism
CPT/HCPCS: 43249; 00731; J3010

== ENCOUNTER 2018-01-30 13:51 | Emergency (ER) | payer MEDICARE ==
[2018-01-30] MEDS ORDERED: ASPIRIN 81 MG CHEWABLE TABLET PO ONE (14:20)
[2018-01-30] MEDS: NITROGLYCERIN 0.4MG SL TABLET #25 BTL SL PRN ×3 (14:39→17:13)
[2018-01-30 14:47] LABS: BASO % 0.7 % (0-6); EOS % 3.3 % (0-6); GRAN % 61.9 % (47-80); HEMATOCRIT 32.4 % (42.0-52.0); HEMOGLOBIN 9.5 gm/dl (14.0-18.0); LYMPH % 24.9 % (16-45); MEAN CELL VOLUME 67.1 fl (81-97); MEAN CORPUSCULAR HGB CONC 29.3 g/dl (32-36); MEAN PLATELET VOLUME 10.4 fl (7.4-10.4); MONO % 9.2 % (0-9); PLATELET COUNT 327 K/uL (130-400); RED BLOOD COUNT 4.83 M/uL (4.40-5.70); RED CELL DISTRIBUTION WIDTH 18.8 % (11.5-14.5); WHITE BLOOD COUNT W/O DIFF 5.4 K/uL (4.2-12.2)
[2018-01-30 14:53] LABS: MEAN CORPUSCULAR HEMOGLOBIN 19.6 pg (27-33)
[2018-01-30 14:55] LABS: BLOOD UREA NITROGEN 17 mg/dL (8-23); CREATININE 0.9 mg/dL (0.7-1.2); EST GLOMERULAR FILTRATION RATE > 60 mL/min
[2018-01-30 14:58] LABS: GLUCOSE,RANDOM 266 mg/dL (74-109)
[2018-01-30 15:01] LABS: CREATINE PHOSPHOKINASE 238 U/L (39-308)
[2018-01-30 15:03] LABS: CKMB 9.3 ng/mL (<6.73)
[2018-01-30] MEDS ORDERED: ACETAMINOPHEN 1,000 MG/100 ML BTL IVPB ONE (17:02)
[2018-01-30] MEDS ORDERED: KETOROLAC 30 MG/ML VIAL IVP ONE (18:00)
--- NOTE | 2018-01-30 18:34 | Emergency Department Record ---
History of Present Illness - General Chief Complaint: Chest Pain Stated Complaint: CHEST PAIN Time Seen by Provider: 01/30/18 14:11 Source: Patient Mode of Arrival: Wheelchair Limitations: No limitations - History of Present Illness Initial Comments: pt has been having cp all day. w radiation to his left arm Complaint: Chest pain Onset/Timin -: Days(s) Onset: During rest Pain Location: Substernal Pain Radiation: LUE Severity scale (1-10): 8 Quality: Aching, Heaviness Consistency: Constant Improves With: Nothing Worsens With: Nothing Treatments Prior to Arrival: None - Related Data Allergies Allergy/AdvReac Type Severity Reaction Status Date / Time levofloxacin [From LEVAQUIN] Allergy Unknown HIVES Verified 01/25/18 06:40 Travel Screening - Travel/Exposure Within Last 30 Days Have you traveled within the last 30 days?: No Review of Systems Reviewed: No additional complaints except as noted below Constitutional: Reports: As per HPI. Denies: Chills, Fever, Malaise, Night sweats, Weakness, Weight change Eyes: Reports: As per HPI. Denies: Eye discharge, Eye pain, Photophobia, Vision change ENT: Reports: As per HPI. Denies: Congestion, Dental pain, Ear pain, Epistaxis , Hearing loss, Throat pain Respiratory: Reports: As per HPI. Denies: Cough, Dyspnea, Hemoptysis, Stridor, Wheezes Cardiovascular: Reports: As per HPI, Chest pain. Denies: Arrhythmia, Dyspnea on exertion, Edema, Murmurs, Orthopnea, Palpitations, Paroxysmal nocturnal dyspnea, Rheumatic Fever, Syncope Endocrine: Reports: As per HPI. Denies: Fatigue, Heat or cold intolerance, Polydipsia, Polyuria Gastrointestinal: Reports: As per HPI. Denies: Abdominal pain, Constipation, Diarrhea, Hematemesis, Hematochezia, Melena, Nausea, Vomiting Genitourinary: Reports: As per HPI. Denies: Dysuria, Frequency, Hematuria, Incontinence, Retention, Testicular pain, Testicular mass, Urgency Musculoskeletal: Reports: As per HPI. Denies: Arthralgia, Back pain, Gout, Joint swelling, Myalgia, Neck pain Skin: Reports: As per HPI. Denies: Bruising, Change in color, Change in hair/ nails, Lesions, Pruritus, Rash Neurological: Reports: As per HPI. Denies: Abnormal gait, Confusion, Headache, Numbness, Paresthesias, Seizure, Tingling, Tremors, Vertigo, Weakness Psychiatric: Reports: As per HPI. Denies: Anxiety, Auditory hallucinations, Depression, Homicidal thoughts, Suicidal thoughts, Visual hallucinations Hematological/Lymphatic: Reports: As per HPI. Denies: Anemia, Blood Clots, Easy bleeding, Easy bruising, Swollen glands Past Medical History - SOCIAL HISTORY Smoking Status: Never smoker - RESPIRATORY Hx Respiratory Disorders: No - CARDIOVASCULAR Hx Cardio Disorders: Yes Hx Cardiac Cath: Yes (8 stents, triple bypass) Hx Heart Attack: Yes - NEURO Hx Neuro Disorders: Yes Hx Dizziness: Yes - GI Hx GI Disorders: Yes Hx Reflux: Yes Comment:: hx of dysphagia - Hx Genitourinary Disorders: No - ENDOCRINE Hx Endocrine Disorders: Yes - MUSCULOSKELETAL Hx Musculoskeletal Disorders: Yes Hx Back Injury: Yes - PSYCH Hx Psych Problems: No - HEMATOLOGY/ONCOLOGY Hx Hematology/Oncology Disorders: Yes Hx Cancer: Yes (bladder) Hx Chemotherapy: No Hx Radiation Therapy: No Family Medical History Any Significant Family History?: Yes Hx Cancer: Brother/Sister Hx Dementia: Father, Brother/Sister Hx Heart Disease: Mother, Brother/Sister Physical Exam - General General Appearance: Alert, Oriented x3, Cooperative, Mild distress - Head Head exam: Normal inspection - Eye Eye exam: Normal appearance, PERRL, EOMI Pupils: Normal accommodation - ENT ENT exam: Normal exam, Mucous membranes moist, Normal external ear exam, Normal orophraynx Ear exam: Normal external inspection. negative: External canal tenderness Nasal Exam: Normal inspection. negative: Discharge, Sinus tenderness Mouth exam: Normal external inspection, Tongue normal Teeth exam: Normal inspection. negative: Dental caries Throat exam: Normal inspection. negative: Tonsillar erythema, Tonsillar exudate - Neck Neck exam: Normal inspection, Full ROM. negative: Tenderness - Respiratory Respiratory exam: Normal lung sounds bilaterally. negative: Respiratory distress - Cardiovascular Cardiovascular Exam: Regular rate, Normal rhythm, Normal heart sounds - GI/Abdominal GI/Abdominal exam: Soft, Normal bowel sounds. negative: Tenderness - Rectal Rectal exam: Deferred - exam: Deferred - Extremities Extremities exam: Normal inspection, Full ROM, Normal capillary refill. negative: Tenderness - Back Back exam: Reports: Normal inspection, Full ROM. Denies: Muscle spasm, Rash noted, Tenderness - Neurological Neurological exam: Alert, CN II-XII intact, Normal gait, Oriented X3 - Psychiatric Psychiatric exam: Normal affect, Normal mood - Skin Skin exam: Dry, Intact, Normal color, Warm Course Vital Signs 01/30/18 01/30/18 01/30/18 14:46 15:03 17:13 Pulse Rate [ 88 88 61 Regulated Program Manager ] Respiratory 20 20 18 Rate Blood Pressure 127/70 130/64 149/58 [Left Arm] Pulse Ox 95 97 99 - Reevaluation(s) Reevaluation #1: 01/30/18 18:37 pt took 2 ntg then refused anymore saying it wasnt helping Reevaluation #2: 01/30/18 18:38 pt demanding morphine by name and threatening to leave AMA. pt offered more nitro and given ofirmov Reevaluation #3: 01/30/18 18:39 pt still threatening to leave if he doesnt get morphine stating the other dr always gives it. pt offered more ntg and transfer 3 times. pt given toradol Reevaluation #4: 01/30/18 18:58 pt would only agree to not go [facility] if given morphine. pt given 1mg and agreed to being transferred Medical Decision Making - Lab Data Result diagrams: 01/30/18 14:00 01/30/18 14:00 Lab Results 01/30/18 01/30/18 01/30/18 Range/Units 14:00 14:00 14:00 WBC 5.4 (4.2-12.2) K/uL RBC 4.83 (4.40-5.70) M/uL Hgb 9.5 L (14.0-18.0) gm/dl Hct 32.4 L (42.0-52.0) % MCV 67.1 L (81-97) fl MCH 19.6 L (27-33) pg MCHC 29.3 L (32-36) g/dl RDW 18.8 H (11.5-14.5) % Plt Count 327 (130-400) K/uL MPV 10.4 (7.4-10.4) fl Gran % 61.9 (47-80) % Lymphocytes % 24.9 (16-45) % Monocytes % 9.2 H (0-9) % Eosinophils % 3.3 (0-6) % Basophils % 0.7 (0-6) % D-Dimer 1.43 H (0-0.59) mg/L FEU Sodium 138 (136-145) mmol/L Potassium 5.0 H (3.4-4.5) mmol/L Chloride 99 (98-107) mmol/L Carbon Dioxide 29.0 (22-29) mmol/L Anion Gap 10.0 (7-16) BUN 17 (8-23) mg/dL Creatinine 0.9 (0.7-1.2) mg/dL Estimated GFR > 60 mL/min Random Glucose 266 H (74-109) mg/dL Calcium 8.9 (8.8-10.2) mg/dL Creatine Kinase 238 (39-308) U/L CK-MB (CK-2) 9.3 H (<6.73) ng/mL CK-MB (CK-2) Rel Index 3.90 (0-4) % Troponin T < 0.010 (0-0.010) ng/mL 01/30/18 01/30/18 Range/Units 14:00 18:00 WBC (4.2-12.2) K/uL RBC (4.40-5.70) M/uL Hgb (14.0-18.0) gm/dl Hct (42.0-52.0) % MCV (81-97) fl MCH (27-33) pg MCHC (32-36) g/dl RDW (11.5-14.5) % Plt Count (130-400) K/uL MPV (7.4-10.4) fl Gran % (47-80) % Lymphocytes % (16-45) % Monocytes % (0-9) % Eosinophils % (0-6) % Basophils % (0-6) % D-Dimer (0-0.59) mg/L FEU Sodium (136-145) mmol/L Potassium (3.4-4.5) mmol/L Chloride (98-107) mmol/L Carbon Dioxide (22-29) mmol/L Anion Gap (7-16) BUN (8-23) mg/dL Creatinine (0.7-1.2) mg/dL Estimated GFR mL/min Random Glucose (74-109) mg/dL Calcium (8.8-10.2) mg/dL Creatine Kinase 238 (39-308) U/L CK-MB (CK-2) (<6.73) ng/mL CK-MB (CK-2) Rel Index (0-4) % Troponin T Cancelled (0-0.010) ng/mL Disposition Disposition: Transfer Clinical Impression: Chest pain Qualifiers: Chest pain type: unspecified Qualified Code(s): R07.9 - Chest pain, unspecified Disposition: Acute Care Hospital Transfer Transfer To: [facility] Reason For Transfer: needs saddle cutter Accepting Physician: dr de la torre Time Discussed w/Accepting Physician: 18:58 Quality - Quality Measures Quality Measures: N/A - Blood Pressure Screening Does Patient Have Any of the Following: Active Dx of HTN Blood Pressure Classification: Hypertensive Reading Systolic Measurement: 149 Diastolic Measurement: 58 Screening for High Blood Pressure: Patient Exclusion, Hx of HTN [G9744]
[2018-01-30 18:36] LABS: CKMB 7.7 ng/mL (<6.73)
[2018-01-30 18:39] LABS: CREATINE PHOSPHOKINASE 200 U/L (39-308)
[2018-01-30] MEDS ORDERED: MORPHINE SULFATE 10 MG/ML VIAL IVP ONE (18:49)
--- NOTE | 2018-01-31 22:18 | CT ANGIOGRAM REPORT ---
EXAM: CT ANGIOGRAM CHEST CTA w contrast HISTORY: CHEST PAIN RADIATING INTO NECK AND LEFT ARM. TECHNIQUE: CT angiogram of the chest. Approximately 60 mL of Omnipaque-350 intravenous contrast agent administered. Maximum-intensity projection reconstructed images were created on a separate workstation. COMPARISON: CTA chest 01/25/2018. FINDINGS: There is adequate pulmonary arterial contrast opacification to the subsegmental level. No pulmonary artery filling defects are seen to suggest pulmonary embolism. Scattered calcifications of the thoracic aorta without evidence of aneurysm or dissection. No significant pericardial fluid. Coronary artery calcifications are noted. There are postoperative changes of the mediastinum. Multiple mediastinal lymph nodes are noted without evidence of pathologic enlargement. Central airways appear patent. Bilateral lobe atelectasis and stranding appears decreased from recent comparison. Biapical scarring. No new focal pulmonary opacities. No pleural effusion or pneumothorax. Right upper pole scarring again noted. Mild persistent dilation of the left renal collecting system, similar from prior. 2 mm mid left renal calculus noted. Splenic calcified granulomas are noted. Small hiatal hernia. Multilevel thoracic spine degenerative changes are present. Right shoulder degenerative changes are noted. IMPRESSION: 1. NO EVIDENCE OF PULMONARY EMBOLISM OR OTHER ACUTE INTRATHORACIC PROCESS. 2. NO NEW FOCAL PULMONARY FINDINGS. ATELECTASIS/POSSIBLE INFLAMMATORY CHANGES IN THE LUNG BASES APPEAR PARTIALLY IMPROVED FROM PRIOR CT. 3. ADDITIONAL INCIDENTAL AND CHRONIC FINDINGS, DESCRIBED ABOVE. JOB NUMBER: [id number] [facility]
== END 2018-01-30 20:08 | disposition short-term general hospital (02) ==
LOC: ER 13:51
DX: R79.89 Other specified abnormal findings of blood chemistry (principal); M54.2 Cervicalgia; M79.622 Pain in left upper arm; I10 Essential (primary) hypertension; E11.9 Type 2 diabetes mellitus without complications; I25.2 Old myocardial infarction; Z95.1 Presence of aortocoronary bypass graft; Z79.4 Long term (current) use of insulin
CPT/HCPCS: 99285 ×2; 96365; 96375; 82550; 85025; 82553; 80048; 84484; 85379; 71275; 93005; 93010; Q9967; J1885; J2270

== ENCOUNTER 2018-03-12 12:34 | Emergency (ER) | payer MEDICARE ==
--- NOTE | 2018-03-12 12:58 | Emergency Department Record ---
History of Present Illness - General Chief Complaint: Dizziness Stated Complaint: weak and dizzy Time Seen by Provider: 03/12/18 12:51 Source: Patient Mode of Arrival: Ambulatory Limitations: No limitations - History of Present Illness Initial Comments: The patient is here due to not feeling well for 3 days. He had some vomiting 2 days ago and has not felt well since. The vomiting did stop and then he has developed mild diffuse body weakness and dizziness. He also feels that he has no energy. There is no reported CP, SOB, MARTHA, BOBBY or sweating. MD Complaint: Lightheadedness Onset/Timin -: Days(s) Timing: Gradual onset Description: Difficulty walking, Lightheadedness History of Same: No History of Trauma: No Severity: Moderate Improves With: Remaining still, Rest Worsens With: Movement, Exertion Associated Symptoms: Denies other symptoms - Gregorio Coma Scale Eye Response: (4) Open spontaneously Motor Response: (6) Obeys commands Verbal Response: (5) Oriented Gregorio Total: 15 - Related Data Allergies Allergy/AdvReac Type Severity Reaction Status Date / Time levofloxacin [From LEVAQUIN] Allergy Unknown HIVES Verified 03/12/18 12:44 Travel Screening - Travel/Exposure Within Last 30 Days Have you traveled within the last 30 days?: No - Travel/Exposure Within Last Year Have you traveled outside the [place] in the last year?: No - Additonal Travel Details Have you been exposed to anyone with a communicable illness?: No - Travel Symptoms Symptom Screening: None Review of Systems Constitutional: Reports: Malaise. Denies: Chills, Fever Eyes: Denies: Eye discharge ENT: Denies: Congestion Respiratory: Denies: Cough, Dyspnea Cardiovascular: Denies: Arrhythmia, Chest pain Endocrine: Reports: Fatigue Gastrointestinal: Reports: Nausea, Vomiting. Denies: Diarrhea Genitourinary: Denies: Dysuria Musculoskeletal: Denies: Arthralgia Past Medical History - SOCIAL HISTORY Smoking Status: Never smoker Alcohol Use: None Drug Use: None - RESPIRATORY Hx Respiratory Disorders: No - CARDIOVASCULAR Hx Cardio Disorders: Yes Hx Cardiac Cath: Yes (8 stents, triple bypass) Hx Heart Attack: Yes - NEURO Hx Neuro Disorders: Yes Hx Dizziness: Yes - GI Hx GI Disorders: Yes Hx Reflux: Yes Comment:: hx of dysphagia - Hx Genitourinary Disorders: No - ENDOCRINE Hx Endocrine Disorders: Yes - MUSCULOSKELETAL Hx Musculoskeletal Disorders: Yes Hx Back Injury: Yes - PSYCH Hx Psych Problems: No - HEMATOLOGY/ONCOLOGY Hx Hematology/Oncology Disorders: Yes Hx Cancer: Yes (bladder) Hx Chemotherapy: No Hx Radiation Therapy: No Family Medical History Any Significant Family History?: Yes Hx Cancer: Brother/Sister Hx Dementia: Father, Brother/Sister Hx Heart Disease: Mother, Brother/Sister Physical Exam - General General Appearance: Alert, Oriented x3, Cooperative, No acute distress - Head Head exam: Atraumatic, Normocephalic, Normal inspection - Eye Eye exam: Normal appearance, PERRL, EOMI - ENT Throat exam: Normal inspection. negative: Tonsillar erythema, Tonsillar exudate - Neck Neck exam: Normal inspection, Full ROM. negative: Tenderness - Respiratory Respiratory exam: Normal lung sounds bilaterally. negative: Respiratory distress - Cardiovascular Cardiovascular Exam: Regular rate, Normal rhythm, Normal heart sounds - GI/Abdominal GI/Abdominal exam: Soft, Normal bowel sounds. negative: Tenderness - Extremities Extremities exam: Normal inspection, Full ROM, Normal capillary refill. negative: Tenderness - Back Back exam: Reports: Normal inspection - Neurological Neurological exam: Alert, Normal gait. negative: Abnormal gait, Motor sensory deficit Course Vital Signs 03/12/18 12:45 Temperature 99.5 F Pulse Rate 87 Respiratory 20 Rate Blood Pressure 165/66 Pulse Ox 97 - Reevaluation(s) Reevaluation #1: The patient is doing a lot better at this time. He denies any CP or SOB and has been resting comfortably. He is up walking on his own with a normal balance and no difficulty. We are waiting on a 2nd set of cardiac enzymes due to the first Trop being indeterminant. 03/12/18 16:25 Reevaluation #2: The patient is feeling better and denies any weakness or lightheadedness. He also has had no CP, SOB, MARTHA, or sweating. The 2nd Trop is still indeterminent but the CK-MB is neg. I did review the patient's history and he has had similar Indeterminent Trop's in the past. I also did consult Dr. Chapo Oconnor who is with the patient's Cardiology group and he did review his history also and confirmed that the patient has had this multiple times in the past. Since the patient is not having any cardiac symptoms now and is feeling better we will discharge the patient to home. He is to F/U with his PCP and Poker Room Manager next week. 03/12/18 17:00 Medical Decision Making - Data Complexity MDM Data: EKG Ordered and/or Reviewed - Lab Data Result diagrams: 03/12/18 13:00 03/12/18 13:00 - EKG Data -: EKG Interpreted by Me EKG: No Acute Changes, Unchanged From Previous Disposition Disposition: Discharge Clinical Impression: Weakness Disposition: Home, Self-Care Condition: (2) Stable Instructions: Dizziness (ED) Additional Instructions: Please continue your regular medicines and drink plenty of fluids. Please see your family doctor next week and also see your Poker Room Manager next week. Return to the ER for any worsening symptoms. Referrals: [facility] [Provider Group] Forms: Patient Portal Access Time of Disposition: 17:06 Quality - Quality Measures Quality Measures: N/A - Blood Pressure Screening View Details: Yes Does Patient Have Any of the Following: Active Dx of HTN Blood Pressure Classification: Hypertensive Reading Systolic Measurement: 142 Diastolic Measurement: 66 Screening for High Blood Pressure: Patient Exclusion, Hx of HTN [G9744]
[2018-03-12] MEDS ORDERED: 0.9 % SODIUM CHLORIDE 1,000 ML BAG IV ONE (13:02)
[2018-03-12] MEDS ORDERED: ACETAMINOPHEN 325 MG TAB PO ONE (13:02)
[2018-03-12] MEDS ORDERED: MECLIZINE 25 MG TABLET PO ONE (13:04)
[2018-03-12 13:13] LABS: BASO % 0.3 % (0-6); EOS % 0.8 % (0-6); GRAN % 73.1 % (47-80); HEMATOCRIT 32.6 % (42.0-52.0); HEMOGLOBIN 9.4 gm/dl (14.0-18.0); LYMPH % 12.5 % (16-45); MEAN CELL VOLUME 68.1 fl (81-97); MEAN CORPUSCULAR HEMOGLOBIN 19.6 pg (27-33); MEAN CORPUSCULAR HGB CONC 28.8 g/dl (32-36); MEAN PLATELET VOLUME 10.3 fl (7.4-10.4); MONO % 13.3 % (0-9); PLATELET COUNT 297 K/uL (130-400); RED BLOOD COUNT 4.79 M/uL (4.40-5.70); WHITE BLOOD COUNT W/O DIFF 7.9 K/uL (4.2-12.2)
[2018-03-12 13:21] LABS: BLOOD UREA NITROGEN 18 mg/dL (8-23); CREATININE 1.1 mg/dL (0.7-1.2); EST GLOMERULAR FILTRATION RATE > 60 mL/min
[2018-03-12 13:24] LABS: GLUCOSE,RANDOM 229 mg/dL (74-109)
[2018-03-12 13:26] LABS: ALT/SGPT 14 U/L (<41); AST/SGOT 15 U/L (10.0-50.0)
[2018-03-12 13:27] LABS: ALB/GLOB RATIO 1.3 (1.1-1.8); ALKALINE PHOSPHATASE 66 U/L (40-129); CREATINE PHOSPHOKINASE 120 U/L (39-308)
[2018-03-12 13:29] LABS: CKMB 3.4 ng/mL (<6.73)
[2018-03-12 16:21] LABS: CKMB 3.3 ng/mL (<6.73)
== END 2018-03-12 17:21 | disposition home or self-care (01) ==
LOC: ER 12:34
DX: R42 Dizziness and giddiness (principal); R53.1 Weakness; E11.9 Type 2 diabetes mellitus without complications; Z79.4 Long term (current) use of insulin; Z95.1 Presence of aortocoronary bypass graft
CPT/HCPCS: 80053; 82550; 82553; 84484; 85025; 93005; 93010; 99283; 99284; J7030

== ENCOUNTER 2018-07-07 10:56 | Emergency (ER) | payer MEDICARE ==
--- NOTE | 2018-07-07 11:05 | Emergency Department Record ---
History of Present Illness - General Stated Complaint: CHEST PAIN Time Seen by Provider: 07/07/18 10:57 Source: Patient Mode of Arrival: Ambulatory Limitations: No limitations - History of Present Illness Initial Comments: 82 yo male presents with chest pain. He states the pain came on this morning. It is left sided. He reports a history of CAD and "blood clots". His last stress test was in October of 2017. Subsequently later in October he had a stent placed. He had a normal perfusion imaging at that time. No leg pain or edema. No cough or fevers. No sweating, fevers, or syncope. Dr Abbasi is the patient 's justowriter operator. MD Complaint: Chest pain -: Hour(s) (3) Onset: Other Pain Location: Left chest Severity: Moderate Quality: Aching Consistency: Constant Improves With: Nothing Worsens With: Nothing Context: Other (History of the same) Other Symptoms: Other - Related Data Allergies Allergy/AdvReac Type Severity Reaction Status Date / Time levofloxacin [From LEVAQUIN] Allergy Unknown HIVES Verified 07/07/18 11:07 Review of Systems Constitutional: Denies: Chills, Fever, Malaise, Weakness Eyes: Denies: Eye discharge ENT: Denies: Congestion, Dental pain, Throat pain Respiratory: Denies: Cough, Dyspnea, Hemoptysis, Wheezes Cardiovascular: Reports: Chest pain. Denies: Palpitations, Syncope Endocrine: Denies: Fatigue Gastrointestinal: Denies: Abdominal pain, Diarrhea, Nausea, Vomiting Genitourinary: Denies: Dysuria, Frequency, Hematuria Musculoskeletal: Reports: Arthralgia. Denies: Myalgia Skin: Denies: Bruising, Change in color, Rash Neurological: Denies: Confusion, Headache, Numbness, Weakness Psychiatric: Denies: Anxiety Hematological/Lymphatic: Reports: Blood Clots. Denies: Easy bleeding, Easy bruising Past Medical History - SOCIAL HISTORY Smoking Status: Never smoker Drug Use: None - RESPIRATORY Hx Respiratory Disorders: No - CARDIOVASCULAR Hx Cardio Disorders: Yes Hx Cardiac Cath: Yes (8 stents, triple bypass) Hx Heart Attack: Yes - NEURO Hx Neuro Disorders: Yes Hx Dizziness: Yes - GI Hx GI Disorders: Yes Hx Reflux: Yes Comment:: hx of dysphagia - Hx Genitourinary Disorders: No - ENDOCRINE Hx Endocrine Disorders: Yes - MUSCULOSKELETAL Hx Musculoskeletal Disorders: Yes Hx Back Injury: Yes - PSYCH Hx Psych Problems: No - HEMATOLOGY/ONCOLOGY Hx Hematology/Oncology Disorders: Yes Hx Cancer: Yes (bladder) Hx Chemotherapy: No Hx Radiation Therapy: No Family Medical History Hx Cancer: Brother/Sister Hx Dementia: Father, Brother/Sister Hx Heart Disease: Mother, Brother/Sister Physical Exam - General General Appearance: Alert, Oriented x3, Cooperative, No acute distress Limitations: No limitations - Head Head exam: Atraumatic, Normal inspection - Eye Eye exam: Normal appearance. negative: Conjunctival injection - ENT ENT exam: Normal exam, Mucous membranes moist Ear exam: Normal external inspection Nasal Exam: Normal inspection Mouth exam: Normal external inspection - Neck Neck exam: Normal inspection - Respiratory Respiratory exam: Normal lung sounds bilaterally. negative: Chest wall tenderness, Decreased breath sounds, Respiratory distress, Rhonchi, Stridor, Wheezes - Cardiovascular Cardiovascular Exam: Regular rate, Normal rhythm, Normal heart sounds Peripheral Pulses: 2+: Radial (R), Radial (L) - GI/Abdominal GI/Abdominal exam: Soft. negative: Tenderness - Rectal Rectal exam: Deferred - exam: Deferred - Extremities Extremities exam: Normal inspection, Full ROM. negative: Pedal edema, Tenderness - Back Back exam: Denies: CVA tenderness (R), CVA tenderness (L) - Neurological Neurological exam: Alert, Oriented X3 - Psychiatric Psychiatric exam: Normal affect, Normal mood - Skin Skin exam: Dry, Intact, Normal color, Warm Course - Reevaluation(s) Reevaluation #1: EKG EKG #1: 10:58 Rate: 84 Rhythm: Sinus [place]: Normal Intervals: Normal ST segments: No acute changes, similar to multiple prior EKG's . NO changes from most recent 03/12/18. Prior: 07/07/18 11:03 07/07/18 11:29 EMR reviewed DC Summary in December CTA demonstrated a single RUL PE, CTA in October, December, and January were negative for PE, aneurysm or dissection. 07/07/18 12:00 The CBC was reviewed Chronic unchanged anemia The renal function is normal Troponin is 0.021. Review of 12 Troponins in 2018, 9 have been in this indeterminate range D-dimer is 1.19. All D-dimers since 2013 have been elevated. The last 3 CTA of the chest have been normal and the one positive had a single isolated PE. I believe the clinical suspicion of PE is low. Given he has had three negative CTA of the chest I do not think a CTA of the chest is indicated now. No reports of venous dopplers on the EMR so his legs will be dopplered today. 07/07/18 12:34 No acute changes on the XR of the chest 07/07/18 13:44 The venous dopplers are negative The pain is much improved. The patient is resting comfortably 07/07/18 15:28 Repeat Troponin was 0.012 07/07/18 15:42 Dr Oconnor reviewed the chart. With negative serial enzymes DC to follow up with Dr Abbasi in the office 07/07/18 15:50 The patient's questions were answered. We discussed reasons to return and close follow up with his justowriter operator Medical Decision Making - Lab Data Result diagrams: 07/07/18 11:00 07/07/18 11:00 Disposition Disposition: Discharge Clinical Impression: Chest pain Disposition: Home, Self-Care Condition: (1) Good Instructions: Chest Pain (ED) Additional Instructions: Call your doctor for the next available follow up appointment Return to the ER for a recheck if worse, any new concerns or questions Review this ER visit and the tests performed with your family doctor Referrals: NATHANAEL ABBASI M.D. [MEDICAL DOCTOR] - Forms: Patient Portal Access Time of Disposition: 15:44 Quality - Quality Measures Quality Measures: N/A - Blood Pressure Screening Does Patient Have Any of the Following: No Blood Pressure Classification: Pre-Hypertensive BP Reading Systolic Measurement: 138 Diastolic Measurement: 67 Screening for High Blood Pressure: < Pre-Hypertensive BP, F/U Documented > [ G8950] Pre-Hypertensive Follow-up Interventions: Referral to alternative/primary care provider.
[2018-07-07 11:22] LABS: HEMATOCRIT 31.7 % (42.0-52.0); HEMOGLOBIN 9.4 gm/dl (14.0-18.0); MEAN CELL VOLUME 65.2 fl (81-97); MEAN CORPUSCULAR HEMOGLOBIN 19.3 pg (27-33); MEAN CORPUSCULAR HGB CONC 29.7 g/dl (32-36); MEAN PLATELET VOLUME 9.8 fl (7.4-10.4); PLATELET COUNT 321 K/uL (130-400); RED BLOOD COUNT 4.86 M/uL (4.40-5.70); RED CELL DISTRIBUTION WIDTH 19.7 % (11.5-14.5); WHITE BLOOD COUNT W/O DIFF 6.7 K/uL (4.2-12.2)
[2018-07-07] MEDS: ASPIRIN 81 MG CHEWABLE TABLET PO ONE (11:28)
[2018-07-07] MEDS: ACETAMINOPHEN 1,000 MG/100 ML BTL IVPB ONE (11:29)
[2018-07-07 11:32] LABS: BLOOD UREA NITROGEN 23 mg/dL (8-23); EST GLOMERULAR FILTRATION RATE > 60 mL/min
[2018-07-07 11:34] LABS: GLUCOSE,RANDOM 163 mg/dL (74-109)
[2018-07-07] MEDS: NITROGLYCERIN 0.4MG SL TABLET #25 BTL SL ONE (11:35)
[2018-07-07 11:39] LABS: PARTIAL THROMBOPLASTIN TIME 25.6 SECONDS (24.5-39.1); PROTHROMBIN TIME (PATIENT) 9.6 SECONDS (9.5-12.1)
[2018-07-07 11:50] LABS: HYPOCHROMIA 2+; MICROCYTOSIS 1+
[2018-07-07] MEDS: MORPHINE SULFATE 10 MG/ML VIAL IVP ONE (13:10)
--- NOTE | 2018-07-08 07:45 | RADIOLOGY REPORT ---
EXAM: PORTABLE CHEST HISTORY: DIFFICULTY BREATHING. TECHNIQUE: A portable AP upright view of the chest was performed. FINDINGS: Postop sternotomy wires. Surgical clips are present. Small left pleural effusion. The heart size is normal. Mild degenerative change of the shoulder girdles. IMPRESSION: SMALL LEFT PLEURAL EFFUSION, OTHERWISE NEGATIVE. JOB [facility]BER: [id number] [facility]
--- NOTE | 2018-07-08 08:01 | US VENOUS DOPPLER REPORT ---
EXAM: ULTRASOUND OF THE DEEP VENOUS SYSTEM OF THE BILATERAL LOWER EXTREMITIES HISTORY: CALF PAIN. TECHNIQUE: Sonographic evaluation of the deep venous system of the right and left lower extremity was performed with the addition of Doppler, compression and augmentation. Comparison: None. FINDINGS: There is normal blood flow, compression, and augmentation identified in the deep venous system of the right and left lower extremity. IMPRESSION: NEGATIVE FOR DEEP VEIN THROMBOSIS IN THE BILATERAL LOWER EXTREMITIES. JOB NUMBER: [id number] [facility]
== END 2018-07-07 16:08 | disposition home or self-care (01) ==
LOC: ER 10:56
DX: R07.89 Other chest pain (principal); R79.89 Other specified abnormal findings of blood chemistry; R06.00 Dyspnea, unspecified; D53.9 Nutritional anemia, unspecified; M79.662 Pain in left lower leg; M79.661 Pain in right lower leg; I25.10 Atherosclerotic heart disease of native coronary artery without angina pectoris; E11.9 Type 2 diabetes mellitus without complications; I10 Essential (primary) hypertension; Z95.1 Presence of aortocoronary bypass graft; Z79.4 Long term (current) use of insulin
CPT/HCPCS: 99284 ×2; 96365; 96375; 85730; 85610; 80048; 84484; 85379; 85027; 83880; 71045; 93970; 93005; 93010; J2270